=== PATIENT | female | born 1975 | race Caucasian/White ===

== ENCOUNTER 2019-12-04 15:32 | Outpatient (CLI) | payer OTHER, SELFPAY ==
--- NOTE | ~2019-12-04 | MM_ITS ---
EXAMINATION: MM screening smita BI w carly HISTORY: Screening mammogram TECHNIQUE: Craniocaudal and mediolateral oblique 3-D tomosynthesis images were obtained and synthetic 2-D images were generated. CAD analysis was submitted and interpreted. COMPARISON: 12/28/2017 BREAST PARENCHYMAL COMPOSITION: There are scattered areas of fibroglandular density. FINDINGS: There is developing asymmetry laterally in the right breast CC view. The left breast is sta ble without evidence for malignancy. IMPRESSION: 1. Developing right breast asymmetry laterally on CC view. 2. Additional mammographic views and possible breast ultrasound are recommended. BI-RADS Category 0: Incomplete: Needs additional imaging evaluation. Reviewed, dictated and finalized at location A. IMPRESSION: 1. Developing right breast asymmetry laterally on CC view. 2. Additional mammographic views and possible breast ultrasound are recommended . BI-RADS Category 0: Incomplete: Needs additional imaging evaluation.
== END 2019-12-04 15:33 | disposition home or self-care (01) ==
LOC: ANHIMG 15:36
PROVIDERS: PCP Family Medicine; Visit Provider Advanced Practice Midwife
DX: Z12.31 Encounter for screening mammogram for malignant neoplasm of breast (principal); R92.8 Other abnormal and inconclusive findings on diagnostic imaging of breast
CPT/HCPCS: 77063; 77067

== ENCOUNTER 2019-12-28 11:56 | Outpatient (CLI) | payer OTHER, SELFPAY ==
--- NOTE | ~2019-12-28 | MMUS_ITS ---
EXAMINATION: MM diagnostic mammo unilat RT, US breast RT limited HISTORY: Follow-up right breast masses TECHNIQUE: Additional 3-D tomosynthesis images of the right breast were performed and synthetic 2-D i mages were generated. CAD analysis was submitted and interpreted. High resolution right breast ultras ound was performed. COMPARISON: Comparison to multiple prior studies sequentially, with oldest reviewed study dated 12/28. BREAST PARENCHYMAL COMPOSITION: Breast composed of scattered areas of fibroglandular density. FINDINGS: MAMMOGRAPHIC FINDINGS: There are benign-appearing masses in the upper aspect of the right breast. There are no abnormal calc ifications or architectural distortion in the right breast to suggest malignancy. ULTRASOUND: Right breast ultrasound: There are multiple simple and complicated cysts of the right breast at 12:00 , 7 cm from the nipple, likely corresponding to the mammographic findings. IMPRESSION: 1. Multiple benign-appearing cysts of the right breast at 12:00, 7 cm from the nipple likely correspo nding to the mammographic findings. 2. Recommend 6 month follow-up diagnostic right mammogram with possible ultrasound. BI-RADS category 3, probably benign findings. Reviewed, dictated and finalized at location A. IMPRESSION: 1. Multiple benign-appearing cysts of the right breast at 12:00, 7 cm from the nipple likely corresponding to the mammographic findings. 2. Recommend 6 month follow-up diagnostic right mammogram with possible ultraso und. BI-RADS category 3, probably benign findings.
== END 2019-12-28 11:57 | disposition home or self-care (01) ==
PROVIDERS: PCP Family Medicine; Visit Provider Advanced Practice Midwife
DX: R92.8 Other abnormal and inconclusive findings on diagnostic imaging of breast (principal)
CPT/HCPCS: 76642; 77065

== ENCOUNTER 2021-05-26 14:25 | Emergency (ER) | payer OTHER, SELFPAY ==
--- NOTE | ~2021-05-26 | XR_ITS ---
EXAMINATION: XR chest 2V DATE: 05/26/2021 14:49 INDICATION: Cough. TECHNIQUE: Frontal and lateral views of the chest were obtained. COMPARISON: CT abdomen and pelvis 04/09/2010 FINDINGS: The chest demonstrates clear lungs without pneumonia, pleural effusion, or pneumothorax. Th e heart size is normal. IMPRESSION: 1. No acute cardiopulmonary disease. Reviewed, dictated and finalized at location B. 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
[2021-05-26 14:32] VITALS: BP 143/84; PULSE 85; RESP 14; TEMP 36.7; O2SAT 99
--- NOTE | 2021-05-26 14:36 | ED.URI ---
HPI - URI/Sore Throat General Chief Complaint: Upper Respiratory Infection Stated Complaint: Chest Congestion/Shortness of Breath Time Seen by Provider: 05/26/21 14:36 Source: patient and RN notes reviewed History of Present Illness HPI Narrative: Patient is a 46-year-old female presents the urgent care with complaints of cough and chest congestion. Patient states that she was seen in another facility on Wednesday and given prednisone for her cough and states that it is not helping . Patient tested negative at that time for flu, strep and COVID. When patient was tested for COVID at the facility she had only been symptomatic for 2 days. Denies any recent exposure to COVID. Patient has not been vaccinated. Denies of any known fevers, nausea or vomiting. Patient does have 2 more days left of the steroid. Patient was not given an inhaler or antibiotics. States that she is having difficulty exhaling. Otherwise denies of shortness of breath or chest pain. No other acute complaints. No acute distress noted. Patient read the plan of care. Some parts of this dictation were generated by voice recognition software and may contain typographical and/or grammatical inaccuracies. Related Data Home Medications Medication Instructions Recorded Confirmed prednisone 20 mg PO DAILY 05/26/21 05/26/21 sertraline 50 mg PO DAILY 05/26/21 05/26/21 Allergies Allergy/AdvReac Type Severity Reaction Status Date / Time hydroxyzine Allergy Mild HIVES Unverified 05/26/21 14:36 Review of Systems Review of Systems: CONSTITUTIONAL: Denies fever. Reports of chills and sweats EYES: Denies visual changes, redness, or discharge. ENT: Denies rhinorrhea, congestion, sore throat, or otalgia. CARDIOVASCULAR: Denies chest pain, palpitations, or edema. RESPIRATORY: Reports a persistent cough and difficulty exhaling GASTROINTESTINAL: Denies abdominal pain, nausea, vomiting, or diarrhea. GENITOURINARY: Denies dysuria or hematuria. SKIN: Denies rash or itching. MUSCULOSKELETAL: Denies back pain, joint pain, or myalgia. NEUROLOGIC: Denies headache, numbness, or weakness. All other systems reviewed are negative, except as documented in HPI. PMFSH Comments At the time of my signature, I reviewed and agree with the nursing past medical, surgical, social, and family history. There is no relevant family history pertinent to the patient complaint. Exam Narrative: GENERAL: This is a well-nourished, well-developed patient. He is anxious HEAD: normocephalic, atraumatic. EYES: PERRL. Sclera clear/white. Vision is grossly intact. EARS: External ears normal, auditory canals clear and without drainage, TMs normal without perforation. Hearing grossly intact. NOSE: External nose normal with no obvious nasal discharge, nares without redness, no rhinorrhea. THROAT: Mucous membranes moist, posterior pharynx clear. Moderate postnasal drainage NECK: Neck supple CARDIOVASCULAR: Regular rate and rhythm without murmurs, gallops, or rubs. RESPIRATORY: Clear to auscultation. Diminished right lower SKIN: Slightly diaphoretic. warm, intact with no suspicious lesions or rash, good texture and turgor. NEURO: awake, alert, and oriented to person, place and time. There were no obvious focal neurologic abnormalities. EXTREMITIES: No clubbing, cyanosis, or edema. Course Course Level of Care: Express Care Visit Vital Signs Vital signs: Vital Signs Temperature 98.0 F 05/26/21 14:32 Pulse Rate 85 05/26/21 14:32 Respiratory Rate 14 05/26/21 14:32 Blood Pressure 143/84 H 05/26/21 14:32 Pulse Oximetry 99 05/26/21 14:32 Temperature 98.0 F 05/26/21 14:38 Pulse Rate 85 05/26/21 14:38 Respiratory Rate 14 05/26/21 14:38 Blood Pressure 143/84 H 05/26/21 14:38 Pulse Oximetry 99 05/26/21 14:38 Reviewed-patient is informed that they may have pre-hypertension or hypertension based on a blood pressure reading in the department. I recommend the patient call the prima
[2021-05-26 14:38] VITALS: BP 143/84; PULSE 85; RESP 14; TEMP 36.7; O2SAT 99
== END 2021-05-26 15:17 | disposition home or self-care (01) ==
PROVIDERS: Emergency Provider Nurse Practitioner Family; PCP Family Medicine
DX: J40 Bronchitis, not specified as acute or chronic (principal)
CPT/HCPCS: 71046; 99213; G0463

== ENCOUNTER 2024-06-29 09:19 | Emergency (ER) | payer OTHER, SELFPAY ==
--- OUTSIDE RECORDS SUMMARY | 2024-06-29 09:38 | XMS_ITS | Referral Summary ---
Author Organization [facility] Address 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 This disclosure is being madepursuant to the Care Everywhere program and may not contain all information available regarding this patient. Last updated 18.[facility] Encounters Date Type Department Care Team Description 06/17/2024 Orders Only [facility] [address] [place] [address] Demi Sharma APRN-CNP 06/17/2024 9:20 AM SKEIN WINDER Video Visit [facility] [address] [place] [phone] Demi Sharma APRN-CNP Bronchitis from Last 3 Months Allergies Active Allergy Reactions Criticality Noted Date Comments Hydroxyzine Urticaria Medium 01/14/2017 Medications * Be aware that medications may not be up to date on this document. Alwaysverify current medications with the patient. Medication Sig Dispensed Refills Start Date End Date Status Vitamins-Lipotropi cs (MULTIPLE VITAMIN) capsule Active ferrous gluconate 324 (37.5 Fe) MG Take 324 mg by mouth 01/14/2017 Active FLUoxetine (PROZAC) 20 MG capsule Take 20 mg by mouth 2 times daily 0 01/19/2019 Active benzonatate (TESSALON) 200 MG capsule Take 1 capsule by mouth 3 times daily as needed for Cough 30 capsule 02/09/2019 Active albuterol HFA (PROVENTIL;VENTOLI N;PROAIR) 108 (90 Base) MCG/ACT inhaler Inhale 2 puffs by mouth every 6 hours as needed for Shortness of Breath, Wheezing or Cough 1 Inhaler 02/09/2019 Active sertraline (Zoloft) 50 MG tablet Take 1 (one) tablet by mouth once daily 05/24/2023 Active benzonatate (Tessalon) 200 MG capsule Take 1 (one) capsule by mouth 3 times daily as needed for Cough 30 capsule 06/17/2024 Active predniSONE (Deltasone) 10 MG tablet Take 5 (five) tablets by mouth once daily for 2 days, THEN 4 (four) tablets once daily for 2 days, THEN 3 (three) tablets once daily for 1 day, THEN 2 (two) tablets once daily for 1 day, THEN 1 (one) tablet once daily for 1 day. With food int he morning. 24 tablet 06/17/2024 06/24/2024 Active Problems No known active problems Social History Tobacco Use Types Packs/Day Years Used Date Smoking Tobacco: Never Assessed PHQ-2 Answer Date Recorded Patient Health Questionnaire-2 Score 1 06/17/2024 Sex and Gender Information Value Date Recorded Sex Assigned at Not on file Gender Identity Not on file Sexual Orientation Not on file Last Filed Vital Signs Vital Sign Reading Time Taken Comments Blood Pressure 132/84 02/09/2019 4:48 PM CDT Pulse 86 02/09/2019 4:48 PM CDT Temperature 37 C (98.6 F) 02/09/2019 4:48 PM CDT Respiratory Rate 18 02/09/2019 4:48 PM CDT Oxygen Saturation 96% 02/09/2019 4:48 PM CDT Inhaled Oxygen Concentration - - Weight 104.3 kg (230 lb) 02/09/2019 4:48 PM CDT Height 162.6 cm (5' 4 ) 02/09/2019 4:48 PM CDT Body Mass Index 39.48 02/09/2019 4:48 PM CDT Plan of Treatment Not on file
--- OUTSIDE RECORDS SUMMARY | 2024-06-29 09:38 | XMS_ITS | Patient Health Summary ---
Author Organization [facility] Address [address] 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,non-owned Affiliates and Associated Physician Practices is amultiple site organization consisting of ambulatory clinics and hospital sitesin [place], [place], [place] and [place]. This disclosure is being madepursuant to the Care Everywhere program and may not contain all information available regarding this patient. Last updated 18.[facility] Allergies * Hydroxyzine(Urticaria) -Medium Criticality Medications * Be aware that medications may not be up to date on this document. Alwaysverify current medications with the patient. * Vitamins-Lipotropics (MULTIPLE VITAMIN) capsule * ferrous gluconate 324 (37.5 Fe) MG(Started 01/14/2017) Take 324 mg by mouth * FLUoxetine (PROZAC) 20 MG capsule(Started 01/19/2019) Take 20 mg by mouth 2 times daily * benzonatate (TESSALON) 200 MG capsule(Started 02/09/2019) Take 1 capsule by mouth 3 times daily as needed for Cough * albuterol HFA (PROVENTIL;VENTOLIN;PROAIR) 108 (90 Base) MCG/ACT inhaler (Started 02/09/2019) Inhale 2 puffs by mouth every 6 hours as needed for Shortness of Breath, Wheezing or Cough * sertraline (Zoloft) 50 MG tablet(Started 05/24/2023) Take 1 (one) tablet by mouth once daily * benzonatate (Tessalon) 200 MG capsule(Started 06/17/2024) Take 1 (one) capsule by mouth 3 times daily as needed for Cough Ended Medications* predniSONE (Deltasone) 10 MG tablet(Started 06/17/2024) () Take 5 (five) tablets by mouth once daily for 2 days, THEN 4 (four) tablets once daily for 2 days, THEN 3 (three) tablets once daily for 1 day, THEN 2 (two) tablets once daily for 1 day, THEN 1 (one)tablet once daily for 1 day. With food int he morning. Active Problems No known active problems Social [...]
--- OUTSIDE RECORDS SUMMARY | 2024-06-29 09:38 | XMS_ITS | Clinical Summary ---
Author Organization [facility] Address [address] [place] [address] Phone Care Team Providers Care Document Review Specialist Name Role Phone Sanjay Rivera MD Primary Care Provider [phone] Allergies Active Allergy Reactions Criticality Noted Date Comments Hydroxyzine Hives 01/14/2017 Measles Virus Vaccine Live Attenuated Hives Medium 05/23/2019 Reaction: hives, Wheat Other (see Comments) Low 02/25/2018 Medications Cholecalciferol (VITAMIN D3) 1000 UNIT Tablet Take 1 Tab by mouth Every other day. Active albuterol 108 (90 Base) MCG/ACT Aerosol Solution take 2 Puffs by inhalation every 4 hours as needed. 9 Active omeprazole (PriLOSEC) 20 MG CAPSULE DELAYED RELEASEIndicati ons:Pharyngoeso phageal dysphagia Take 1 Capsule by mouth 2 times daily. 180 Capsule 1 1 Active Additional Information Patient taking differently:20 mg OralPRN, Reported on 04/18/2021 sertraline (ZOLOFT) 50 MG Tablet Take 50 mg by mouth daily. Active Probiotic Product (PROBIOTIC DAILY PO) Take by mouth. Activ e [place]-3 Fatty Acids (FISH OIL PO) Take by mouth daily. 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 01/12/2018 Chronic diarrhea 01/12/2018 Restless leg syndrome 01/12/2018 Celiac disease Resolved Problems Problem Noted Date Diagnosed Date Resolved Date Celiac disease 02/14/2018 09/16/2019 Family History Medical History Relation Name Comments Crohn's Disease Brother Cancer Maternal Grandfather Heart Disease Maternal Grandfather Cancer Maternal Grandmother Hypertension Mother Stroke Mother Cancer Paternal Grandfather Diabetes Paternal Grandfather Heart Disease Paternal Grandfather Cancer Paternal Grandmother Relation Name Status Comments Brother Alive Father Alive Maternal Grandfather Maternal Grandmother Mother Alive Paternal Grandfather Paternal Grandmother Social History Tobacco Use Types Packs/Day Years Used Date Smoking Tobacco: Never Smokeless Tobacco: Never Tobacco Cessation:Counseling Given: Not Answered Alcohol Use Standard Drinks/Week Comments Not Currently 0 (1 standard drink = 0.6 oz pur e alcohol) rarely Sexually Active Control Partners Comments Yes None Male Comments No Sex and Gender Information Value Date Recorded Sex Assigned at Not on file Legal Sex Female 11:52 PM CDT Gender Identity Not on file Sexual Orientation Not on file 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 Not on file Not on file Last Filed Vital Signs Vital Sign Reading Time Taken Comments Blood Pressure 148/100 05/12/2022 3:33 PM SEE SUPERVISOR Pulse 94 05/12/2022 3:33 PM SEE SUPERVISOR Temperature 36.5 C (97.7 F) 05/12/2022 3:33 PM SEE SUPERVISOR Respiratory Rate 18 05/12/2022 3:33 PM SEE SUPERVISOR Oxygen Saturation 97% 05/12/2022 3:33 PM SEE SUPERVISOR Inhaled Oxygen Concentration - - Weight 114.4 kg (252 lb 1.6 oz) 05/12/2022 3:33 PM SEE SUPERVISOR Height 167.6 cm (5' 6 ) 05/12/2022 3:33 PM SEE SUPERVISOR Body Mass Index 40.69 05/12/2022 3:33 PM SEE SUPERVISOR Plan of Treatment Health Maintenance Due Date Last Done Comments Hepatitis C Virus (HCV) Screening 1975 TdaP Immunization 1975 Hepatitis B Immunization (1 of 3 - 19+ 3-dose series) 02/15/1995 Pap Smear 02/15/1997 Cervical Cancer Screening (CCS) 02/15/2006 HPV/Cotest 02/15/2006 Discussion re Starting/Frequency of Mammograms 2016 Influenza Immunization (#1) 2024 SARS-COV-2 Immunization ( season) 2024 Colonoscopy High Risk 10/29/2025 10/29/2020 , 02/14/2018 Colorectal Cancer Screening 10/29/2025 Immunochemical Fecal Occult Blood 02/15/2026 12/23/2017 Colonoscopy 10/29/2030 10/29/2020, 02/14/2018 Respiratory Syncytial Virus (RSV) Immunization (Adult) (1 - 1-dose 75+ series) 02/15/2051 Meningococcal Immunization (ACWY) Aged Out No longer eligible b ased on patient's age to complete this topic Pneumococcal Immunization Combined Aged Out No longer eligible b ased on patient's age to complete this topic Rotavirus Immunization Aged Out No lo nger eligible based on patient's age to complete this topic Procedures Procedure Name Priority Date/Time Associated Diagnosis Comments STOOL, OCCULT BLOOD IMMUNOAS SAY (IFOB) Routine 12/23/2017 from Last 3 Months or Most Recently Relevant to Health Maintenance Results * STOOL, OCCULT BLOOD IMMUNOASSAY (IFOB) (12/23/2017) Specimen of unknown material (specimen) STOOL SPECIMEN / Unknown Eyad Mohan MD BODY FLUIDS & STOOLS ORDERA BLES Final Result from Last 3 Months or Most Recently Relevant to Health Maintenance Insurance [employer] Care Teams Document Review Specialist Relationship Specialty Start Date End Date Sanjay Rivera MD [address] [place] [address] PCP - General Internal Medicine 04/21/19
--- OUTSIDE RECORDS SUMMARY | 2024-06-29 09:38 | XMS_ITS | Clinical Summary ---
Author Organization [facility] Address [address] 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 This disclosure is being madepursuant to the Care Everywhere program and may not contain all information available regarding this patient. 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 Video Visit [facility] [address] [address] Demi Sharma APRN-CNP Bronchitis 06/17/2024 Orders Only [facility] [address] [place] [address] Demi Sharma APRN-CNP from Last 3 Months Social History Tobacco Use Types Packs/Day Years [...] 02/09/2019 4:48 PM CDT Plan of Treatment Health Maintenance Due Date Last Done Comments COLOGUARD (AGES 45-75) - COLON CA SCREENING [address] COLONOGRAPHY - COLON CA SCREENING 1975 FIT - COLON CA SCREENING 1975 FLEX SIG - COLON CA SCREENING 1975 LIPID TESTING 1975 HIV SCREENING 02/15/1991 HEPATITIS C SCREENING 02/11/1994 DTAP/TDAP/TD VACCINES (1 - Tdap) 02/15/1995 HEPATITIS B VACCINE (1 of 3 - 19+ 3-dose series) 02/15/1995 COVID-19 VACCINE (1 - 2023- season) 2024 INFLUENZA VACCINE (#1) 2024 ZOSTER VACCINE (1 of 2) 02/15/2026 PAP SMEAR 03/03/2026 03/03/2023 MAMMOGRAM 03/10/2026 03/10/2024, 02/15, 11/27/2022, Additional history exists COLONOSCOPY - COLON CA SCREENING 02/04/2032 02/03/2022 Colorectal Cancer Screening 02/04/2032 DEPRESSION SCREENING Completed 06/17/2024 HIB VACCINE Aged Out No longer eligi ble based on patient's age to complete this topic HPV VACCINE Aged Out No longer eligi ble based on patient's age to complete this topic MENINGOCOCCAL (Group B) VACCINE Aged Out No longer eligible based on patient's age to complete this topic MENINGOCOCCAL VACCINE Aged Out No liu zulay eligible based on patient's age to complete this topic PNEUMOCOCCAL VACCINE Aged Out No long er eligible based on patient's age to complete this topic Chelita Peoples Personal/Family Self 1975 [address] [id number] Chelita Peoples Personal/Family Self 1975 ([place] [address] [id number]
--- OUTSIDE RECORDS SUMMARY | 2024-06-29 09:38 | XMS_ITS | Data Portability ---
Author Organization [facility] Address [address] [place] [address] Care Team Providers Care Supervisor Money Room Name Role Phone REINIER GAY Primary Care Provider Assessment Encounter Date Assessment Date Assessment LastModified by Organization Details LastModified Time 03/03/2023 03/03/2023 Annual gynecological exam performed. Patient will come back in a year unless there are new symptoms. [email or web address] Not available 03/03/2023 11:01:47 04/05/2024 04/05/2024 Annual gynecological exam performed. Patient will come back in a year unless there are new symptoms. [email or web address] Not available 04/05/2024 17:04:18 Plan of Treatment Reminders Order Date Submit Date Provider Last Modified By Organization Details Last Modified Time Details Appointments None record ed. Lab None record ed. Referral None record ed. Procedures None record ed. Surgeries None record ed. Imaging None record ed. Medication Orders None record ed. Patient TargetsNo targets recorded. Patient InstructionsNo instructions recorded. Reason for Referral None Reported. 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 FINAL DIAGN OSIS: Negat maliha for Intra epith elial Lesio n or Amrita ron (NIL) . Infla mmato ry cell boateng es (incl udes typic al repai r). Elect warner cocuh chacho d by Nitin Peña MD on 2021 at 2:28 PM ----- ----- ----- ----- ----- ----- ----- ----- ----- ----- ----- ----- ----- ----- ----- ----- ----- ---- HPV RESUL TS: HPV mRNA E6/E7 : No HPV mRNA Detec kathy NOTE: This high risk HPV mRNA assay detec ts fourt een high- risk HPV types (16, 18, 31, 33, 35, 39, 45, 51, 52, 56, 58, 59, 66, 68) witho ut diffe renti ation . COMME NT: Note: This speci men was revie wed by a Cytot echno logis t and/o r Patho logis t (as indic ated in this repor t) after evalu ation using the Thinp rep Imagi ng Syste m. CLINI VAN INFOR MATIO N: Menst rual Statu s: LMP (if appli cable ): Clini van Histo ry/Pr eviou s Pap: Type of Neopl abigail (if appli cable ): Signi fican t Clini van Findi ngs: Other Histo ry: Hormo candace (if appli cable ): PAP EDUCA ALLIE L NOTE: The Pap Test is a scree ender test with an inher ent false negat maliha rate. Liqui d-bas ed sampl ing may decre ase, but will not elimi jorge, false negat maliha resul ts. A negat maliha resul t does not precl ude the prese nce and/o r devel opmen t of disea se, since the prese nce of abnor mal cells in the sampl e depen ds on the locat ion of the lesio n and sampl ing techn ique. Renuka nued regul ar scree ender is the best metho d of cance r preve ntion . If repor kathy cytol ogic findi ng do not corre late with physi van and/o r histo rical findi ngs, furth er inves tigat ion is recom liz d, as clini federica salmon nted. Not Available [facility] (Lab) [address], [place], [address], 09/29/2021 15:31:07 08/12/19 23 08/11/2022 SURGI VAN PATHO LOGY surgical pathology SEE RESULT S BELOW CASE REPOR T: Surgi van Patho logy Repor t Case: [id number] Autho denise swartz Provi cira: Cora Beatty, CNRodney Colle cted: 08/11 1710 Order ing Locat ion: [place] Path[place] Recei tobi: 08/12 0541 Patho logis t: Jany Owen MD Speci men: Vagin a, Cyst of vagin a FINAL DIAGN OSIS: Vagin al cyst, excis ion: -Hidr adeno ma papil lifer um. Elect warner couch chacho d by Jany Owen MD on 2022 at 4:44 PM ----- ----- ----- ----- ----- ----- ----- ----- ----- ----- ----- ----- ----- ----- ----- ----- ----- ---- CLINI VAN INFOR MATIO N: n89.8 MICRO SCOPI C DESCR IPTIO N: A micro scopi c exami natio n was perfo rmed. GROSS DESCR IPTIO N: A. Vagin a. The speci men is recei tobi in forma dayan label ed with the patie nt's name, aston levine, and vagi nal cyst . It consi sts of a monge-p ink, firm soft tissu e fragm ent measu ring 1.1 x 0.8 x 0.5 cm. The speci men is secti oned and submi tted entir adela in casse tte A1. 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 FINAL DIAGN OSIS: Negat maliha for Intra epith elial Lesio n or Amrita ron (NIL) . Elect warner couch chacho d by Verito Rosenberg , CT on 03/08 at 10:58 AM ----- ----- ----- ----- ----- ----- ----- ----- ----- ----- ----- ----- ----- ----- ----- ----- ----- ---- HPV RESUL TS: HPV mRNA E6/E7 : No HPV mRNA Detec kathy NOTE: This high risk HPV mRNA assay detec ts fourt een high- risk HPV types (16, 18, 31, 33, 35, 39, 45, 51, 52, 56, 58, 59, 66, 68) witho ut diffe renti ation . COMME NT: This speci men was revie wed by a Cytot echno logis t and/o r Patho logis t (as indic ated in this repor t) after evalu ation using the Thinp rep Imagi ng Syste m. CLINI VAN INFOR MATIO N: Menst rual Statu s: LMP (if appli cable ): Clini van Histo ry/Pr eviou s Pap: Type of Neopl abigail (if appli cable ): Signi fican t Clini van Findi ngs: Other Histo ry: Hormo candace (if appli cable ): PAP EDUCA ALLIE L NOTE: The Pap Test is a scree ender test with an inher ent false negat maliha rate. Liqui d-bas ed sampl ing may decre ase, but will not elimi jorge, false negat maliha resul ts. A negat maliha resul t does not precl ude the prese nce and/o r devel opmen t of disea se, since the prese nce of abnor mal cells in the sampl e depen ds on the locat ion of the lesio n and sampl ing techn ique. Renuka nued regul ar scree ender is the best metho d of cance r preve ntion . If repor kathy cytol ogic findi ng do not corre late with physi van and/o r histo rical findi ngs, furth er inves tigat ion is recom liz d, as clini federica salmon nted. Not Available [facility] (Lab) [address], [place], [address], 03/08/2023 12:02:05 Result Notes None recorded. Problems Name Problem SNOMED Code Status Onset Date Resolution Date Notes Provider Name and Address Organization Details Recorded Time Speciali zed medical examinat ion Completed 201306/16/2021 Routine gynecolo gical examinat ion;Prac daija ID: 0001 Mae aquino [facility] 2 14:24:53 Screenin g for malignan t neoplasm of cervix Completed 201306/16/2021 Pap Smear;Pr actice ID: 0001 Mae aquino [facility] 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 2 14:24:49 Emotiona l state finding Completed 201706/16/2021 Other specifie d anxiety disorder s;Practi ce ID: 0001 Mae aquino [facility] 2 14:24:30 Palpitat ions [id number] Completed 201706/16/2021 Palpitat ions;Pra ctice ID: 0001 Mae aquino [facility] 2 14:24:57 Screenin g for malignan t neoplasm of rectum Completed 201706/16/2021 Encounte r for screenin g for malignan t neoplasm of rectum;P ractice ID: 0001 Mae aquino [facility] 2 14:24:[address] Concept Completed 201806/16/2021 Encntr for general adult medical exam w/o abnormal findings ;Recorde d Elsewher e: No [facility] our[facility]: EHR Digital Assistant kendell: N Practi ce ID: 0001 Anthony lable Time: 05:30:00 PM Mae aquino [facility] 2 14:24:48 Right lower quadrant pain [id number] Completed 201406/16/2021 RLQ pain;Rec orded Elsewher e: No Locat ion: [facility] S ource: EHR Digital Assistant kendell: N David ce ID: 0001 Anthony lable Time: 04:00:00 PM Mae Rizo [facility] 2 14:24:46 Low risk human papillom avirus deoxyrib onucleic acid detected in specimen from cervix [id number] Completed 201609/22/2021 Marlyn Boudreaux [facility], [facility] 2 09:16:48 Adult health examinat ion Completed 201306/16/2021 ROUTINE MEDICAL EXAM;Rec orded Elsewher e: No Locat ion: [facility] S ource: EHR Digital Assistant kendell: N David ce ID: 0001 Anthony lable Time: 04:00:00 PM Mae Rizo [facility], [facility] 2 14:24:43 Abnormal weight gain 135716243 Completed 201806/16/2021 Abnormal weight gain;Rec orded Elsewher e: No Locat ion: [facility] S ource: EHR Digital Assistant kendell: Meg Hernandez ce ID: 0001 Anthony lable Time: 05:30:00 PM Mae Rizo [facility] 2 14:24:37 Female genital organ symptoms 264649227 Completed 201106/16/2021 Unspecif ied symptom associat ed with female genital organs;R ecorded Elsewher e: No Locat ion: [facility] S ource: EHR Digital Assistant kendell: N David ce ID: 0001 Anthony lable Time: 03:30:00 PM Mae Rizo [facility] 2 14:24:41 Obesity 117374955 Completed 201306/16/2021 Obesity; Recorded Elsewher e: No Locat ion: Bob dara [facility] S ource: EHR Digital Assistant kendell: N Practi ce ID: 0001 Anthony lable Time: 04:00:00 PM Mae aquino [facility] 2 14:24:51 Body mass index 30+ - obesity [id number] Completed 201406/16/2021 Body mass index (BMI) 36.0-36. 9, adult;Re corded Elsewher e: No Locat ion: [facility] S ource: EHR Digital Assistant kendell: N Practi ce ID: 0001 Anthony lable Time: 04:00:00 PM Mae aquino [facility] 2 14:24:38 Removal of intraute rine device Completed 201306/16/2021 REMOVAL OF IUD;Rick rded Elsewher e: No Locat ion: [facility] S ource: EHR Digital Assistant kendell: N Practi ce ID: 0001 Anthony lable Time: 04:15:00 PM Mae aquino [facility] 2 14:24:55 Problem Notes None recorded. Procedures Surgical History Date Name Laterality Status Provider Name and Address Organization Details Recorded Time 03/10/20 24 Date of Last Mammogram completed [facility] 04/05/2024 17:10:43 03/03/20 23 Date of Last Pap Smear completed [facility] 04/05/2024 17:01:51 08/12/19 23 I&D completed Cora Woods [facility] 08/14/2022 10:21:32 08/12/19 23 excision of cyst of vagina completed Leena Maloney [facility] 08/18/2022 16:29:00 02/06/20 22 completed Leena Maloney [facility] 08/18/2022 16:27:12 09/20/20 22 Date of Last Colonoscopy completed [facility] 08/18/2022 16:27:12 05/17/19 11 biopsy of ovary completed [facility] 06/16/2021 14:29:44 05/17/19 10 procedure on back completed [facility] 08/11/2022 10:50:30 05/17/19 04 surgical procedure on eye proper using laser completed [facility] 08/11/2022 10:51:42 05/17/19 02 section completed [facility] 06/16/2021 14:28:22 08/19/19 00 Caesarean Section completed [facility] 04/05/2024 17:03:25 05/17/18 98 removal of sebaceous cyst completed [facility] 06/16/2021 14:28:34 05/17/18 91 extraction of wisdom tooth completed [facility] 06/16/2021 14:29:31 05/17/18 90 Tonsillectomy completed [facility] 04/05/2024 17:12:25 Imaging Results None recorded. Procedure Notes None recorded. Medical Equipment None Reported. Allergies Allergen ID Allergen Name Allergen Category Reaction Reaction Severity Criticality Documentation Date Start Date Code Code System Note Provider Name and Address Organization Details Recorded Time 85125 hydroxyzi ne Not available Not available Not available Not available 06/16/2021 5553 RxNorm Mae Darrius [facility] 14:24:14 99053 measles and rubella live virus vaccine Not available Not available Not available Not available 06/16/2021 27993 UNK Mae Darrius [facility] 2 14:30:22 92950 Measles Vaccine Not available Not available Not available Not available 06/16/2021 6669 RxNorm Mae Darrius aquino [place] - [facility] 2 14:30:31 Medications Name Sig Start Date Stop Date Status Note LastModified by Organization Details LastModified Time Singulair 10 mg tablet take 1 tablet by oral route every day in the evening 08/26 completed Prescrib ed Elsewher e: Yes Loca tion: [facility] odify By: [email or web address] z Encoun ter DateTime : 04/02/20 14 04:00:00 PM Not Available Not Available Not Available prednison e 10 mg tablet TAKE 4 TABLETS BY MOUTH ONCE DAILY FOR DAYS 1-3, 3 DAILY FOR DAYS 4-6, 2 DAILY FOR DAYS 7-9, THEN 1 DAILY FOR DAYS 10-12 09/22 completed Not Available Not Available Not Available Vitamin B-12 100 mcg tablet 06/16 completed Prescrib ed Elsewher e: Yes Loca tion: [facility] odify By: amkuhl E ncountkelin DateTime : 12/01/19 18 02:45:00 PM Not Available Not Available Not Available prednison e 20 mg tablet TAKE 2 TABLETS BY MOUTH ONCE DAILY FOR 5 DAYS 09/22 completed Not Available Not Available Not Available phentermi ne 37.5 mg tablet 08/11 completed Not Available Not Available Not Available triamcino lone acetonide 0.1 % topical cream APPLY TOPICALL Y TO THE AFFECTED AREA TWICE DAILY active Not Available Not Available No t Available Prozac 20 mg capsule TAKE 1 CAPSULE BY MOUTH TWICE DAILY 02/06 completed Prescrib ed Elsewher e: No Locat ion: [facility] odify By: [email or web address] Encounte r DateTime : 01/20/20 19 01:00:41 PM Not Available Not Available Not Available methylpre dnisolone 4 mg tablets in a dose pack FOLLOW PACKAGE DIRECTIO NS 04/05 completed Not Available Not Available Not Available albuterol sulfate HFA 90 mcg/actua tion aerosol inhaler INHALE 2 PUFFS BY MOUTH EVERY 6 HOURS NEEDED FOR WHEEZING active Not Available Not Available No t Available clomipram ine 25 mg capsule take 2 capsule by oral route every day at bedtime 08/26 completed Prescrib ed Elsewher e: Yes Loca tion: Cassi [facility] odify By: jacob z Encoun ter DateTime : 04/02/20 14 04:00:00 PM Not Available Not Available Not Available multivita min capsule take 1 capsule by oral route every day 05/06 completed Prescrib ed Elsewher e: Yes Loca tion: Cassi diamond [facility] odify By: noam Diamond ncounter DateTime : 12/30/19 12 01:47:45 PM Not Available Not Available Not Available sertralin e 50 mg tablet TAKE 1 TABLET BY MOUTH EVERY DAY active Not Available Not Available No t Available amoxicill in 875 mg-potass ium clavulana te 125 mg tablet TAKE 1 TABLET BY MOUTH EVERY 12 HOURS FOR 7 DAYS 08/11 completed Not Available Not Available Not Available Flovent HFA 110 mcg/actua tion aerosol inhaler INHALE 2 PUFFS BY MOUTH TWICE DAILY. RINSE MOUTH WATER AFTER USE. DO NOT SWALLOW active Not Available Not Available No t Available testoster one active Pellets [id number] ant based Not Available Not Available Not Available CoQ-10 and Fish Oil active Not Available Not Available Not Available Advair HFA 115 mcg-21 mcg/actua tion aerosol inhaler INHALE 2 PUFFS BY MOUTH TWICE DAILY. RINSE MOUTH WITH WATER AFTER USE. DO NOT SWALLOW active Not Available Not Available No t Available Fish Oil 300 mg-500 mg capsule 06/16 completed Prescrib ed Elsewher e: Yes Loca tion: Cassi diamond [facility] odify By: ambarbara Diamond ncounter DateTime : 12/01/19 18 02:45:00 PM Not Available Not Available Not Available cholecalc iferol (vitamin D3) 1,250 mcg (50,000 unit) capsule TAKE 1 CAPSULE BY MOUTH ONCE A WEEK active Not Available Not Available No t Available Zyrtec 10 mg capsule 08/26 completed Prescrib ed Elsewher e: Yes Loca tion: Cassi diamond [facility] odify By: jacob z Encoun ter DateTime : 04/02/20 14 04:00:00 PM Not Available Not Available Not Available Multi Vitamin 9 mg iron/15 mL oral liquid 06/16 completed Prescrib lissette Marie e: Yes Loca tion: Cassi diamond [facility] M juanito By: noam douglasunter DateTime : 12/01/19 18 02:45:00 PM Not Available Not Available Not Available Clenpiq 10 mg-3.5 gram-12 gram/160 mL oral solution TAKE 1 KIT BY MOUTH DIRECTED 08/11 completed Not Available Not Available Not Available Vitals Date Recorded Body height Body mass index (BMI) Body weight Provider Name and Address Organization Details Last Updated DateTime 09/22/2021 167.64 cm 41 kg/m2 022849.74 g Marlyn Boudreaux [facility] 09/22/2021 12:48:19 Date Recorded Systolic blood pressure Diastolic blood pressure Provider Name and Address Organization Details Last Updated DateTime 09/22/2021 122 mm[Hg] 82 mm[Hg] Rosalia Livingston, [facility]- [address], [place], [address], [facility] 09/22/2021 12:56:08 Date Recorded Body height Body mass index (BMI) Body weight Systolic blood pressure Diastolic blood pressure Provider Name and Address Organization Details Last Updated DateTime 08/11/2022 167.64 cm 38.4 kg/m2 340206.9 8 g 130 mm[Hg] 83 mm[Hg] Leena Maloney [facility] 3 10:46:41 Date Recorded Body height Body mass index (BMI) Body weight Systolic blood pressure Diastolic blood pressure Provider Name and Address Organization Details Last Updated DateTime 08/18/2022 167.64 cm 38.6 kg/m2 742664.5 8 g 128 mm[Hg] 77 mm[Hg] Leena Maloney [facility] 3 16:26:29 Date Recorded Body height Body mass index (BMI) Body weight Provider Name and Address Organization Details Last Updated DateTime 03/03/2023 167.64 cm 41.5 kg/m2 950210.24 g Gudelia Moran [facility] 03/03/2023 11:04:00 Date Recorded Systolic blood pressure Diastolic blood pressure Provider Name and Address Organization Details Last Updated DateTime 03/03/2023 147 mm[Hg] 90 mm[Hg] Rosalia Livingston, [facility]- [address], [place], [address], [facility] 03/03/2023 11:19:05 Date Recorded Body height Body mass index (BMI) Body weight Systolic blood pressure Diastolic blood pressure Provider Name and Address Organization Details Last Updated DateTime 04/05/2024 167.64 cm 39.7 kg/m2 861255.7 2 g 136 mm[Hg] 71 mm[Hg] Elaine Roche [facility] 17:08:54 Social History Question Answer Notes LastModified by Organizat ion Details LastModified Time Tobacco Smoking Status Never Smoker Maliamattie Garridogorge aquino, [facility] 03/03/2023 10:51:43 Do You Have An Advance Directive? Yes [email or web address] Information not available 08/11/2022 What Is Your Level Of Alcohol Consumption? Occasional [email or web address] Information not available 08/11/2022 How Many Years Have You Consumed Alcohol? 15 [email or web address] Information not available 08/11/2022 Are You Blind Or Do You Have Difficulty Seeing? No [email or web address] Information not available 08/11/2022 What Is Your Level Of Caffeine Consumption? Occasional [email or web address] Information not available 08/11/2022 How Much Tobacco Do You Chew? None [email or web address] Information not available 08/11/2022 In The 14 Days Before Symptom Onset, Have You Had Close Contact With A Laboratory-confir med COVID-19 While That Case Was Ill? No [email or web address] Information not available 08/11/2022 In The 14 Days Before Symptom Onset, Have You Had Close Contact With A Person Who Is Under Investigation For COVID-19 While That Person Was Ill? No Information not available 08/11/2022 Have You Been To An Area Known To Be High Risk For COVID-19? No [email or web address] Information not available 08/11/2022 Are You Deaf Or Do You Have Serious Difficulty Hearing? No [email or web address] Information not available 08/11/2022 What Type Of Diet Are You Following? GLUTENFREE [email or web address] Information not available 08/11/2022 What Is The Highest Grade Or Level Of School You Have Completed Or The Highest Degree You Have Received? 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 Yes [email or web address] Information not available 08/11/2022 Do You Use Protection During Sex? No [email or web address] Information not available 08/11/2022 Do You Use Your Seat Belt Or Car Seat Routinely? Yes [email or web address] Information not available 08/11/2022 Do You Have Smoke And Carbon Monoxide Detectors In Your Home? Yes [email or web address] Information not available 08/11/2022 How Much Tobacco Do You Smoke? No [email or web address] Information not available 08/11/2022 Do You Feel Stressed (tense, Restless, Nervous, Or Anxious, Or Unable To Sleep At Night)? [id number] Information not available 08/11/2022 Do You Use Any Illicit Or Recreational Drugs? No [email or web address] Information not available 08/11/2022 Do You Use Sunscreen Routinely? Yes [email or web address] Information not available 08/11/2022 Have You Used IV Drugs? No [email or web address] Information not available 08/11/2022 Sex: Unknown Functional Status Question Answer Note LastModified by Organizat ion Details LastModified Time Do you have difficulty walking or climbing stairs? No [email or web address] Information not available 03/03/2023 Are you able to walk? YESWOREST Information not available 08/11/2022 Are you able to care for yourself? Yes [email or web address] Information not available 03/03/2023 Do you have difficulty dressing or bathing? No [email or web address] Information not available 03/03/2023 What is your exercise level? Occasional [email or web address] Information not available 04/05/2024 Mental Status None recorded. Family History Relationship Description Onset Age of this Age Resolved Age Notes LastModified by Organization Details LastModified Time Maternal Grandfather Malignant neoplasm of bone [email or web address] Not available 2023 17:03:24 Maternal Grandfather Malignant tumor of kidney [email or web address] Not available 2023 17:03:24 Maternal Grandfather Carcinoma of prostate 60 [email or web address] Not available 2023 17:03:24 Maternal Aunt Malignant tumor of breast 60 [email or web address] Not available 2023 17:03:24 Maternal Grandmother Malignant tumor of cervix 50 [email or web address] Not available 2023 17:03:24 Paternal Aunt Malignant neoplasm of skin [email or web address] Not available 2023 17:03:24 Paternal Grandmother Malignant neoplasm of uterus 50 Not available 2023 17:03:24 Medical History Condition Response Allergies (Food, seasonal, environmental ) Y Other Y Drug/Latex Allergies/Reactions Y Blood Transfusion N Breast Cancer N Dermatologic Disorders N Lung Disease N Defects or Inherited Disease N Breast Problem N Gestational Diabetes N Hematologic disorders N Anesthesia Complications N History of STI N Deep Vein Thrombosis N Polycystic ovary syndrome N Anxiety Disorder Y Autoimmune disease N Arthritis N Polyps N Infertility N Acid Reflux (GERD) N History of abnormal pap Y Cancer Y Varicosities N Stroke N Neurologic/Epilepsy Y Endometriosis N High Cholesterol N Fibromyalgia N Headaches N Kidney Disease N Heart Problems N Thyroid Problems N Kidney or Bladder Problems N GI Problems Y Eating Disorder N Anemia N Art (IVF or FET) N Psychiatric Illness N Ovarian Cancer N Diabetes N Pulmonary (TB, Asthma) N Hepatitis/Liver Disease N No Past Medical History N Eczema N Urinary Tract Infection N Abuse/Domestic Violence N Asthma Y Trauma/Violence N Depression/ depression Y Heart Disease N Pre-Eclampsia N Hypertension N Osteoporosis N Thrombophilias N Gynecological History Statement/Question Response Abnormal Pap Y Flow Light Date of Last Mammogram 03/10/2024 Date of LMP 03/05/2024 N On BCP's at Conception? N STIs/STDs N Was last menstrual period normal N HPV Vaccine N Duration of Flow (days) 6 Current Control Method Partner Vas ectomy Age at First Child 24 Are cycles usually normal Y Date of Last Colonoscopy 02/03/2022 Frequency of Cycle (Q days) 30 Sexually Active? Y Menses Monthly Y Age of first menstrual cycle 13 Date of Last Pap Smear 03/03/2023 Sexual Problems? N LMP Definite 02/05/2022 Y Obstetrics History GPAL:G 2 P 2 0 0 2 Type Value Full Term 2 Living 2 Total 2 Past Encounters Encounter ID Performer Location Encounter Start Date Encounter Closed Date Diagnosis/Indication Diagnosis SNOMED-CT Code Diagnosis ICD10 Code Diagnosis [id number] [address] [address] 06/17/2021 10:29:18 06/23/2021 16:18:12 Gynecologic examination [id number] Z01.419 Z11.51 Suggested Calcium with Vitamin D 1200-1500m g daily. Patient advised to get an annual flu shot in the fall and she could obtain at [facility] or [facility] clinic. Also to obtain TDap vaccinatio n if you have not had one in the last 10 years. Recommend yearly mammograms . Encouraged monthly self breast exams. Encourage safe sexual practices, to use condoms and limit partners if not already in a monogamous relationsh ip. Engage in daily exercise of low impact aerobic exercise 45-60 minutes 4-5 times weekly. Avoid tobacco and illicit drugs as well as using moderation with alcohol intake less than 1-2 8 oz beverages daily. This lifestyle behavior pattern will lead to less health conditions and longer life span. If BMI greater than 25 weight watchers or dietary consult advised. All questions have been answered. Patient appears to understand informatio n, but if you have any questions please call or respond to this email. [id number] Rosalia Livingston [facility] [address] [address] 09/22/2021 12:36:51 09/22/2021 13:11:52 Specimen with abnormal presence of endometrial cells [id number] R87.619 Likely pap done too close to menses but it was decided that a repeat pap/hpv testing will be completed today.Spec mounika sentwill update when results return. Time spent in visit is a total of 15 mins with at least 50% of visit consisting of counseling and review of plan of care. [id number] Cora Woods [facility] [address] [address] 08/11/2022 10:29:38 08/14/2022 10:26:51 Cyst of vulva [id number] N90.7 After discussion with MD and patient we decided to proceed with excision. Pt agreed and verbalized understand ing of procedure and risks. Excision of cyst. See procedure note. Care instructio ns given. Return in 1-2 weeks or sooner if any problems. [id number] Cora Woods [facility] [address] [address] 08/18/2022 16:00:16 08/19/2022 14:31:32 Cyst of vulva [id number] N90.7 Hidradenom a papillifer um discussed with patient. Site is healed. Suture removed. Rare chance of malignancy in the future but she will let us know right away if any change in site. [id number] Rosalia Livingston [facility] [address],[place] [address] 03/03/2023 10:51:19 03/03/2023 11:22:39 Gynecologic examination [id number] Z01.419 Z11.51 Suggested Calcium with Vitamin D 1200-1500m g daily. Patient advised to get an annual flu shot in the fall and she could obtain at [facility] or [facility] care clinic. Also to obtain TDap vaccinatio n if you have not had one in the last 10 years. Recommend yearly mammograms . Encouraged monthly self breast exams. Encourage safe sexual practices, to use condoms and limit partners if not already in a monogamous relationsh ip. Engage in daily exercise of low impact aerobic exercise 45-60 minutes 4-5 times weekly. Avoid tobacco and illicit drugs as well as using moderation with alcohol intake less than 1-2 8 oz beverages daily. This lifestyle behavior pattern will lead to less health conditions and longer life span. If BMI greater than 25 weight watchers or dietary consult advised. All questions have been answered. Patient appears to understand informatio n, but if you have any questions please call or respond to this email. Pap/hpv sent (opts to send)STD Screen declinedGe netic Screen discussedC olon Screen naDexa ScreennaRo utine Labs UTD PCP/Specia listHRT Testostero ne pellets q3mos Elevated blood-pressure reading without diagnosis of hypertension [id number] R03.0 No sx'sRecomm ended monitoring and updating visit with PCP. [id number] HENOK SANDY NP [facility] [address] [address] 04/05/2024 17:01:55 04/05/2024 17:27:42 Gynecologic examination [id number] Z01.419 Annual gynecologi van exam performed. Patient will come back in a year unless there are new symptoms. Suggest Calcium with Vitamin D if not eating in diet. Patient advised to get annual flu shot. Recommend yearly physicals and perform monthly breast exams. Genetic testing is available for patients with family history of cancer. Engage in safe sexual practices, use condoms. Encouraged to have daily exercise. Avoid tobacco and illicit drugs, moderation of alcohol. If BMI greater than 25 dietary consult advised. If you have any questions please call or email. Pt getting genetic testing through PCP in July d/t FH of breast cancer (maternal aunt) and uterine cancer (paternal GM) mammogram- UTD PCP colon cancer screening - UTD PCP DEXA scan- n/a Pap smear- UTD (2022 - ), will repeat per ASCCP guidelines laboratory evaluation - PCP STI testing - declined Patient getting HRT Testostero ne pellets q3mos Health Concerns Section Related Observation LastModified by Organization Detai ls LastModified Time None Recorded Concern Status LastModified by Organization Details LastModified Time None Recorded Advance Directives Directive Y: Payers Encounter Date Sequence Insurance Name Policy Number Policy Barrios Covered Member ID Barrios Member ID Guarantor Name 09/22/2021 1 [facility] [id number] Archie Peoples [id number] Ricardo [facility] 08/11/2022 1 [employer] [id number] Archie Peoples [id number] Ricardo Jamisontasheridan 08/18/2022 1 [employer] [id number] Archie Peoples [id number] Ricardo Sontag 03/03/2023 1 [employer] [id number] Archie Peoples [id number] Ricardo Sonta 04/05/2024 1 [facility] [id number] Archie Peoples [id number] Ricardo Zeldag Notes Date Note Type Note Provider Name and Address Organization Details Recorded Time 09/22/2021 text/html Here today for repeat pap/HPV smear testing due to endometrial cells found on pap in 06/2021. [facility] [address], [place], [address], [facility] 09/22/2021 12:59:48 08/11/2022 text/html Vulvar cyst. Has been present for a long time but recently increased in size. Not painful. Cora aquino [facility] 08/14/2022 10:22:15 08/18/2022 text/html Here to follow u p on excison biopsy. No pain or bleeding. Cora aquino [facility] 08/18/2022 17:57:05 03/03/2023 text/html Annual GYNReport ed bypatient.History: no gynecologic complaints Menstrual cycle:Normal menses Urinary symptoms:No hematuria; No incontinence Vulva:No genital lesion Vagina:Normal vaginal discharge Breast:No breast pain; No breast lump; No nipple discharge Current Contraception:Sati sfied with current contraception; Partner had vasectomy Sexual complaints:No sexual complaints; No pain during intercourse; Normal libido Menopausal Symptoms:No menopausal symptoms; Normal vaginal lubrication Psychological symptoms:No depression; No anxiety; No PMDD Preventive measures:Encourage self breast examination; Encourage regular exercise; Encourage no tobacco use; Encourage regular mammograms starting age 40; Followed with yearly pap smears; Mammogram performed within the past year; Up to date on colonoscopy screening Rosalia Livingston [facility] [address], [place], [address], [place] [facility] 03/03/2023 11:21:30 04/05/2024 text/html Annual GYNReport ed bypatient.History: no gynecologic complaints Menstrual cycle:Normal menses Urinary symptoms:No hematuria; No incontinence Vulva:No genital lesion Vagina:Normal vaginal discharge Breast:No breast pain; No breast lump; No nipple discharge Current Contraception:Part ner had vasectomy Sexual complaints:No sexual complaints; No pain during intercourse; Normal libido Menopausal Symptoms:No menopausal symptoms; Normal vaginal lubrication Psychological symptoms:No depression; No anxiety; No PMDD Preventive measures:Encourage self breast examination; Encourage regular exercise; Encourage no tobacco use; Encourage regular mammograms starting age 40; Mammogram performed within the past year; Up to date on colonoscopy screening Patient presents for annual well woman exam. Patient denies concerns today. HENOK SANDY NP [address], [place], [address], [facility] 04/05/2024 17:26:14 OBGyn Episode Ob Episode Information Episode Created Date Number of Fetuses Patient Bloodtype Patient rh Status Prepregnancy Weight lbs Domestic Partner Domestic Partner Phone Father Name Home Decorator Status 06/16/19 1 CLOSED Fetus Data First Name Last Name Admitted to NICU Weight (g) Sex Living Outcome Pediatric Complications Fetus ID Race Codes Race Delivery Type 3713.55 7704 F Full Term [id number] Repeat Samir Calculation Initial Samir Date Initial Exam Date Initial Exam Provider Initial Ultrasound Date Last Menstrual Period Date Ultra Sound Weeks Gestation 0 Eighteen To Twenty Week Samir Update Ultra Sound Date Fundal Height At Umbil Quickening Date Ultra Sound Latest Weeks Gestation Final Samir Confirmed By Final Samir Confirmed Date Final Samir Date Ultra Sound Latest Days Gestation 0 0 Menstrual History Last Menstrual Date Menses Monthly On Bcp Conception Prior Menses Frequency Hcg Plus Date Menarche Onset Age Delivery Information Delivery Date Delivery Type Labor Anesthesia Weeks Gestation Incision Type Labor Labor Length Hrs Delivered By Post Complications Tubal Sterilization Discharge Date Comments 2 38 Discharge Information Feeding Method Contraceptive Method Maternal HG B and HCT Levels Ob Episode Information Episode Created Date Number of Fetuses Patient Bloodtype Patient rh Status Prepregnancy Weight lbs Domestic Partner Domestic Partner Phone Father Name Home Decorator Status 06/16/19 22 1 CLOSED Fetus Data First Name Last Name Admitted to NICU Weight (g) Sex Living Outcome Pediatric Complications Fetus ID Race Codes Race Delivery Type 3628.73 6 M Full Term [id number] Primary Samir Calculation Initial Samir Date Initial Exam Date Initial Exam Provider Initial Ultrasound Date Last Menstrual Period Date Ultra Sound Weeks Gestation 0 Eighteen To Twenty Week Samri Update Ultra Sound Date Fundal Height At Umbil Quickening Date Ultra Sound Latest Weeks Gestation Final Samir Confirmed By Final Samir Confirmed Date Final Samir Date Ultra Sound Latest Days Gestation 0 0 Menstrual History Last Menstrual Date Menses Monthly On Bcp Conception Prior Menses Frequency Hcg Plus Date Menarche Onset Age Delivery Information Delivery Date Delivery Type Labor Anesthesia Weeks Gestation Incision Type Labor Labor Length Hrs Delivered By Post Complications Tubal Sterilization Discharge Date Comments 0 38 Discharge Information Feeding Method Contraceptive Method Maternal HG B and HCT Levels
--- OUTSIDE RECORDS SUMMARY | 2024-06-29 09:39 | XMS_ITS | Clinical Summary ---
Author Organization [facility] Address [address] [place] [address] Care Team Providers Care Product Sales Representative Name Role Phone Sanjay Rivera MD Primary Care Provider [phone] AbileneLiliam MD Unavailable [phone] Allergies Active Allergy Reactions Criticality Noted Date Comments Gluten Other (See comments) Low 01/08/2021 Hydroxyzine Hives Medium 01/14/2017 Measles Vaccine,Live,Attenuated Hives Medium 05/23/2019 Reaction: hives, Wheat Other (See comments) Low 02/25/2018 Medications calcium carbonate-vitami n D3 1,000 mg(2,500 mg)-800 unit tablet Take by mouth daily 1000 international units daily Active acidophilus-pect in, citrus 100 million cell-10 mg capsule Take by mouth OTC Probiotic Active biotin 1,000 mcg tablet,chewable 01/16/20 23 Active cholecalciferol (VITAMIN D-3) 50,000 unit capsule Take 1 capsule (50,000 Units total) by mouth once a week 03/29/20 23 Active omega 8-lcp-xtd-fish oil (Fish OiL) 1,000 mg (120 mg-180 mg) capsule 01/16/20 23 Active sertraline (ZOLOFT) 50 mg tabletIndication s:Anxiety and depression Take 1 tablet (50 mg total) by mouth daily 90 tablet 3 05/24/19 24 Active albuterol HFA (PROVENTIL HFA,VENTOLIN HFA,PROAIR HFA) 90 mcg/actuation inhalerIndicatio ns:Mild intermittent asthma without complication Inhale 2 puffs every 6 (six) hours as needed for wheezing 1 each 3 05/24/19 24 Active fluticasone propion-salmeter oL (Advair HFA) 115-21 mcg/actuation inhalerIndicatio ns:Mild intermittent asthma without complication Inhale 2 puffs 2 (two) times a day Rinse mouth with water after use. Do not swallow. 1 each 3 05/24/19 24 Active triamcinolone (KENALOG) 0.1 % cream Apply topically 2 (two) times a day 30 g 07/09/19 24 Active zinc sulfate (Zinc-15) 66 mg tablet 01/16/20 23 Active Active Problems Problem Noted Date Diagnosed Date Palpitations 04/26/2024 Assessment & Plan (04/26/2024 2:36 PM MANAGER STUDENT SERVICES): Chronic intermittent palpitations. Increasing recently. 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 ECG unremarkable. Also complete labs today. We reviewed red flags. She is in agreement with plan states understanding. Acute pain of left knee 05/24/2023 Assessment & Plan (05/24/2023 4:57 PM MANAGER STUDENT SERVICES): Fall onto left knee/leg 6 days ago. Mild abrasion noted to left knee with [id number] swelling of left knee. Bruising noted to left velazquez. Patient is taking acetaminophen for pain. Pain is worse with walking however she is been able to ambulate without difficulty. Recommended ibuprofen/NSAIDs. Reviewed rest, ice, Kolby wrap and elevating extremity. Left ankle swelling 05/24/2023 Assessment & Plan (05/24/2023 4:57 PM MANAGER STUDENT SERVICES): Swelling and bruising noted to left ankle. Patient is not experiencing any pain. Will check imaging, discussed rice. Left leg pain 05/24/2023 Assessment & Plan (05/24/2023 4:58 PM MANAGER STUDENT SERVICES): No redness or warmth noted to left leg. Given patient is experiencing significant anterior velazquez pain will check imaging of LLE. Bronchitis 01/21/2022 Drug-induced constipation 01/21/2022 Assessment & Plan (01/21/2022 9:40 AM CDT): New onset. May be related to treatment with phentermine. Counseled to augment water consumption. Colonoscopy recommended. Class 3 severe obesity due t o excess calories with serious comorbidity and body mass index (BMI) of 40.0 to 44.9 in adult 06/30/2021 Assessment & Plan (01/21/2022 9:43 AM CDT): She was referred for endoscopic bariatric procedure but it was not covered by her insurance company. Therefore she is trying medications at this time. Assessment & Plan (12/29/2021 5:03 PM CDT): Reviewed medication, adverse effects, and importance of monitoring blood pressure/heart rate routinely. Discussed policy of monthly weigh-ins, expected weight loss of at least 5% over 12 weeks, and follow-up in 3 months. Reviewed EKG on file, patient denies any chest pain or palpitations. Will start first with half tablet and monitor for medication side effects, increase to full tablet once daily after 1 week. She is aware to discontinue phentermine if she experiences GI upset, shortness of breath, palpitations or chest pain. Assessment & Plan (07/16/2021 9:39 AM MANAGER STUDENT SERVICES): The patient desires a minimally invasive procedure for treatment of obesity. She specifically inquired about g astric balloon . I informed her that I will reach out to the [facility] Endoscopy Service to see if it is offered. Assessment & Plan (06/30/2021 5:34 PM MANAGER STUDENT SERVICES): Discussed healthy diet and importance of regular physical activity. Mild intermittent asthma without complication Assessment & Plan (05/24/2023 4:54 PM MANAGER STUDENT SERVICES): Has been on Flovent for several months and is doing well, wanted to use albuterol inhaler for the 1st time this week. She is out both inhalers. Denies any cough or shortness a breath. Assessment & Plan (12/29/2021 4:59 PM CDT): Improved with use of Flovent twice daily. Denies any need for albuterol inhaler. Assessment & Plan (06/30/2021 5:34 PM MANAGER STUDENT SERVICES): Discussed use of maintenance inhaler and rescue inhaler. No abnormal findings on PE. Elevated liver enzymes 01/08/2021 Assessment & Plan (07/16/2021 9:32 AM MANAGER STUDENT SERVICES): Previous repeat liver function tests were normal. She gain weight recently presumably due to steroid therapy. I will repeat liver function tests. Assessment & Plan (01/08/2021 12:52 PM CDT): The patient had AST 44, ALT 139 and alkaline phosphatase 114 (12/02/2020). Likely due to gall bladder disease vs medication induced. Plan Obtain US RUQ. Repeat liver function tests. Encounter for screening mammogram for breast can cer 12/27/2020 Assessment & Plan (02/10/2024 5:21 PM CDT): Mammogram ordered today Assessment & Plan (12/27/2020 4:54 PM CDT): [facility], given order today. Continues sbe. Benign-appearing intramammary lymph node of R breast on 03/11/20 US. Due for annual mammogram November 2020. PEGGY (obstructive sleep apnea) 10/22/2020 Assessment & Plan (04/26/2024 2:36 PM MANAGER STUDENT SERVICES): Untreated. Intolerant of CPAP. Discussed options including trial of dental appliance versus referral to sleep specialist. She will check with her dentist regarding appliance. Keep follow-up as scheduled and if not tolerating will refer to sleep specialist. She is in agreement with plan states understanding. Class 2 obesity due to exces s calories without serious comorbidity with body mass index (BMI) of 39.0 to 39.9 in adult 08/27/2020 Assessment & Plan (02/10/2024 5:05 PM CDT): Taking semaglutide, ordered online, since September of this year. Semaglutide 2.4 mg weekly, tolerating without difficulty. Lost 20l bs. Denies any medication side effects. Has been out of wegovy for the past 2 week. Assessment & Plan (12/27/2020 4:54 PM CDT): Reviewed recommendations for daily intake & activity 20-30 minutes/day. Discussed healthy diet and importance of regular physical activity. Assessment & Plan (08/27/2020 10:21 PM CDT): Reviewed need to lose weight, reviewed health benefits. Reviewed recommendations for daily intake & activity 20-30 minutes/day. Discussed healthy diet and importance of regular physical activity. Encounter for screening for lipid disorder 08/27 Assessment & Plan (02/10/2024 5:21 PM CDT): Fasting labs ordered today Assessment & Plan (05/24/2023 4:54 PM MANAGER STUDENT SERVICES): Patient states she had labs completed with wellness provider about 2 months ago, will have labs sent to office. Assessment & Plan (12/29/2021 5:01 PM CDT): Results for orders placed or performed in visit on 12/29/21 POCT lipid panel Result Value Ref Range Cholesterol, POC 167 mg/dL HDL, POC 48 mg/dL Triglycerides, POC 218 mg/dL LDL, Direct, POC 76 mg/dL Chol/HDL Ratio, POC 3.5 Non-HDL Cholesterol, POC 119 mg/dL Cholesterol Total, POC 167 mg/dL Reviewed with patient, discussed elevated triglyceride level and need for dietary changes. Assessment & Plan (06/30/2021 5:34 PM MANAGER STUDENT SERVICES): Will check fasting labs. Reviewed diet/exercise recommendations. Assessment & Plan (08/27/2020 10:22 PM CDT): Lipid panel ordered; will call w/results when received. Reviewed diet/exercise recommendations. Moderate episode of recurrent major depressive d isorder 07/15/2020 Assessment & Plan (08/27/2020 10:23 PM CDT): Doing well on current sertraline 50mg daily. Reports good control of depression w/current regimen. No changes to be made at this time. Reviewed med Ses & scheduling. Reviewed red flags. To make f/u appt in 3 mos. Assessment & Plan (07/17/2020 11:32 AM MANAGER STUDENT SERVICES): Discussed different types of medications & their Ses/MOA. Sertraline 50 mg daily sent. To take 1/2 tab for 1st 8 days then increase to full tab. To make f/u appt in 5-6 weeks. Aware that it may take up to 4 weeks to notice effects & 6-8 weeks to feel full effects. Reviewed main Ses of GI upset & AGUIRRE Reviewed red flags; aware to call office/911 if thoughts of harming self/others. To stop medications immediately in that instance. MULLEN (dyspnea on exertion) 07/15/2020 Assessment & Plan (07/17/2020 11:30 AM MANAGER STUDENT SERVICES): EKG normal; compared to 11/2018 EKG. No changes. BNP, CXR ordered. Reviewed recent labs from Dr Botello's office. Discussed h/o asthma. If neg CXR/labs, will send in flovent 2 puff bid. Reviewed inhaler technique. Will contact w/results once rec'd. Aware to check her [employer] account. Reviewed red flags; what would warrant rtc/ED for more emergent eval. Anxiety and depression 05/23/2019 Assessment & Plan (02/10/2024 5:20 PM CDT): Moods are stable doing well with sertraline, no changes made today Assessment & Plan (05/24/2023 4:53 PM MANAGER STUDENT SERVICES): Reports moods are stable with sertraline 50 mg daily Assessment & Plan (12/29/2021 5:02 PM CDT): Well controlled with sertraline. Will continue to monitor. Assessment & Plan (06/30/2021 5:35 PM MANAGER STUDENT SERVICES): Stable; continue sertraline without change. Follow up in 6 months or sooner if needed. Lives with supportive family. Denies SI/HI. Assessment & Plan (12/27/2020 4:42 PM CDT): Reports good control of anxiety and depression w/current regimen. No changes to be made at this time. Sertraline 50mg refill sent. Reviewed med Ses & scheduling. Reviewed red flags. Assessment & Plan (08/27/2020 10:20 PM CDT): Sertraline 50mg daily. Reports great improvement in anxiety/depressoin. To make f/u appt in 3 mos. Reports good control of depression/anxiety w/current regimen. No changes to be made at this time. Reviewed med Ses & scheduling. Reviewed red flags. Assessment & Plan (05/23/2019 3:08 PM MANAGER STUDENT SERVICES): Reports good control of anxiety/depression w/current regimen. No changes to be made at this time. Fluoxetine 20mg refill sent. Reviewed med Ses & scheduling. Reviewed red flags. Refused influenza vaccine 05/23/2019 Assessment & Plan (07/17/2020 11:33 AM MANAGER STUDENT SERVICES): Discussed and the patient refuses immunization today. Educated regarding the need to vaccinate for personal protection and to limit the viruses in the community to protect those most vulnerable. Assessment & Plan (05/23/2019 3:09 PM MANAGER STUDENT SERVICES): Discussed and the patient refuses immunization today. Educated regarding the need to vaccinate for personal protection and to limit the viruses in the community to protect those most vulnerable. Celiac disease 02/14/2018 Assessment & Plan (04/26/2024 2:37 PM MANAGER STUDENT SERVICES): Continues with gluten free diet. Will continue to monitor. Assessment & Plan (02/10/2024 5:20 PM CDT): Doing well on gluten free diet. EGD completed 2021 showing regrowth of villi. Will check labs today including CBC, iron profile, vitamin-D and B12. Assessment & Plan (05/24/2023 4:53 PM MANAGER STUDENT SERVICES): Asymptomatic at this time, continues to do well following a gluten free diet. Assessment & Plan (01/21/2022 9:38 AM CDT): Currently asymptomatic. Has become constipated lately because she is started on phentermine. Will check tTG IgA, iron profile. Repeat EGD with small-bowel biopsy. Assessment & Plan (07/16/2021 9:35 AM MANAGER STUDENT SERVICES): Doing well. Has been able to avoid gluten especially from cross contamination at restaurants. Encouraged to continue gluten free diet. Obtain repeat tTG IgA for follow-up. Assessment & Plan (01/08/2021 12:31 PM CDT): Biopsy-proven celiac disease. Has being on gluten free diet for several years. Recent endoscopy with duodenal biopsies revealed improved histology. Copper and zinc levels are reasonable. She also had a colonoscopy in 2020 that was normal. She was advised to continue gluten free diet. Assessment & Plan (05/23/2019 3:08 PM MANAGER STUDENT SERVICES): Follows w/Dr Juan A HARMON at [facility] for celiac. SHARI 04/2019. Doing well at this time w/current diet regimen. 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 Currently not on iron supplements. Has celiac disease. Will check iron profile. Assessment & Plan (01/08/2021 12:30 PM CDT): Chronic. She is now receiving iron infusions less frequent since being on gluten free diet. She follows up with Hematology Service. Advised to continue gluten free diet. Restless leg syndrome 01/12/2018 Chronic diarrhea 01/12/2018 Resolved Problems Problem Noted Date Diagnosed Date Resolved Date Class 3 severe obesity due t o excess calories without serious comorbidity with body mass index (BMI) of 40.0 to 44.9 in adult 07/15/2020 Assessment & Plan (07/17/2020 11:00 AM MANAGER STUDENT SERVICES): Reviewed need to lose weight, reviewed health benefits. Reviewed recommendations for daily intake & activity 20-30 minutes/day. Discussed healthy diet and importance of regular physical activity. Encounter for medical examin ation to establish care 05/23/2019 07/17/2020 Assessment & Plan (05/23/2019 3:09 PM MANAGER STUDENT SERVICES): Reviewed screening guidelines: no family history of breast or colon cancer. Encouraged monthly SBEs. Mammogram 2017 Colonoscopy 02/2018. Not due until [address] y/o [address] Velazco Reviewed dietary/activity recommendations. Encounter for screening for lipoid disorders 0 07/17/2020 Assessment & Plan (05/23/2019 3:09 PM MANAGER STUDENT SERVICES): Lipid panel ordered; will call w/results when received. Reviewed diet/exercise recommendations. BMI 39.0-39.9,adult 05/23/2019 07/18/19 21 Assessment & Plan (05/23/2019 3:10 PM MANAGER STUDENT SERVICES): Reviewed need to lose weight, reviewed health benefits. Reviewed recommendations for daily intake & activity 20-30 minutes/day. Discussed healthy diet and importance of regular physical activity. Encounters Date Type Department Care Team Description 06/22/2024 Telephone [facility] [address] [phone] Sanjay Rivera MD Test Results 06/21/2024 Telephone [place] [facility] [address] [place] [id number] Rose Quiajno MA 06/21/2024 Telephone [facility] [address] [phone] Sanjay Rivera MD Medical Question/Miscellaneo us 06/20/2024 Orders Only [facility] [address] [phone] Perri Lay NP Palpitations (Primary Dx); Murmur, cardiac 06/16/2024 9:25 AM MANAGER STUDENT SERVICES - 06/16/2024 11:59 PM MANAGER STUDENT SERVICES Hospital Encounter [facility] Cardiology [address] [place] [phone] Palpitations; Murmur, cardiac Discharge Disposition: Discharge to home or self care 06/16/2024 9:24 AM MANAGER STUDENT SERVICES - 06/16/2024 11:59 PM MANAGER STUDENT SERVICES Hospital Encounter [facility] Cardiology [address] [place] [phone] Palpitations; Murmur, cardiac Discharge Disposition: Discharge to home or self care 06/07/2024 11:50 AM MANAGER STUDENT SERVICES - 06/07/2024 11:59 PM MANAGER STUDENT SERVICES Hospital Encounter [facility] Cardiology [address] [place] [phone] Palpitations Discharge Disposition: Discharge to home or self care 05/23/2024 Orders Only [facility] [place] [phone] Perri Lay NP Palpitations (Primary Dx); Murmur, cardiac 05/11/2024 Telephone [facility] [address] [phone] Abby Romero, RONALDO Authorization/Certif ication (STRESS ECHO EXERCISE W DOPPLER/CF) 04/26/2024 2:00 PM MANAGER STUDENT SERVICES Office Visit [facility] [address] [phone] Perri Lay NP Palpitations (Primary Dx); Celiac disease; PEGGY (obstructive sleep apnea); Class 3 severe obesity due to excess calories with serious comorbidity and body mass index (BMI) of 40.0 to 44.9 in adult (HCC) 04/25/2024 Telephone [facility] [address] [phone] Sanjay Rivera MD Medical Question/Miscellaneo us 04/24/2024 2:30 PM MANAGER STUDENT SERVICES Office Visit [facility] [address] [place] [address] [address] [place] [id number] Daniela Mcdonald, JULIANE Viral URI with cough (Primary Dx); Cervicalgia; Murmur, cardiac; Class 3 severe obesity due to excess calories with serious comorbidity and body mass index (BMI) of 40.0 to 44.9 in adult (HCC) 04/03/2024 Telephone [facility] and Radiology [id number] [place] [phone] Sharon Diaz, vault keeper Only; Appointment 03/30/2024 Telephone [facility] Radiology [id number] [place] [phone] Sharon Diaz, vault keeper Only (High Risk /Genetic testing referral ) from Last 3 Months Immunizations Name Administration Dates Next Due Influenza, Unspecified 02/10/2024(Deferr ed: Patient Refused),05/24/2023(Deferred: Patient Refused),02/14/2023(Deferred: Patient Refused),01/15/2023(Deferred: Patient Refused),02/14/2022(Deferred: Patient Refused),01/15/2022(Deferred: Patient Refused),06/30/2021(Deferred: Patient Refused),02/14/2021(Deferred: Patient Refused),12/27/2020(Deferred: Patient Refused),07/15/2020(Deferred: Patient Refused),02/15/2020(Deferred: Patient Refused),05/23/2019(Deferred: Patient Refused),05/17/2019(Deferred: Patient Refused),02/14/2019(Deferred: Patient Refused),02/14/2019(Deferred: Patient Refused),05/17/2018(Deferred: Patient Refused) Pneumococcal Polysaccharide PPV23 12/29/2021(Def erred: Patient Refused) Surgical History Surgery Date Site/Laterality Comments TONSILLECTOMY 05/17/1991 - 05/16/1992 tonsillectomy LASIK LASIK OTHER SURGICAL HISTORY 05/17/2006 - 05/16/2007 cocajxejectomy SECTION 05/17/1999 - 05/16/2000 SECTION 05/17/2001 - 05/16/2002 CYST REMOVAL 05/17/1987 - 05/16/1988 N/A Arm WISDOM TOOTH EXTRACTION 05/17/1990 - 05/16/1991 OVARY BIOPSY 05/17/2010 - 05/16/2011 Right OTHER SURGICAL HISTORY 05/17/2007 - 05/16/2008 Complete Tailbone Removal COLONOSCOPY 05/17/2020 - 05/16/2021 COLONOSCOPY 05/17/2021 - 05/16/2022 constipation KNEE ARTHROSCOPY W/ LATERAL RELEASE Medical History Medical History Date Comments Celiac disease 02/2018 Abnormal ThinPrep Pap test of vagina 1995 Tilted uterus 1995 Anemia Anxiety 1998 Asthma Chronic bronchitis (HCC) Depression 1995 Autoimmune disease (CMS/HCC) (HCC) 02/25/2018 Menstrual problem 1989 Sleep apnea Family History Medical History Relation Name Comments Crohn's disease Brother Crohn's dise ase; Diabetes Father Anival Other Father Anival Alive and well; Bone cancer Maternal Grandfather FLAVIA Cancer Maternal Grandfather FLAVIA Heart attack Maternal Grandfather FLAVIA Kidney cancer Maternal Grandfather FLAVIA Prostate cancer Maternal Grandfather FLAVIA prostate Maternal Grandfather FLAVIA Cancer Maternal Grandmother Briana Cervical cancer Maternal Grandmother Briana Ovarian cancer Maternal Grandmother Briana Diabetes Mother Ninoska Heat Stroke Mother Ninoska Hypertension Mother Ninoska Skin cancer Mother Ninoska Breast cancer Mother's Sister 1 Cancer Mother's Sister 2 Monique Skin cancer Other 1 Family history of cancer, skin; Hypertension Other 2 Family history of Hypertension; Cancer Paternal Grandfather Maciej Cancer Paternal Grandmother Kim Heart attack Paternal Grandmother Kim Pancreatic cancer Paternal Grandmother Kim Uterine cancer Paternal Grandmother Kim Diabetes Sister Susy Relation Name Status Comments Brother Alive Pt's half broth er. Share Mother Father Anival Alive Maternal Grandfather FLAVIA Maternal Grandmother Briana Mother Ninoska Alive Mother's Sister 1 Mother's Sister 2 Monique Other 1 Other 2 Paternal Grandfather Maciej Paternal Grandmother Kim Sister Susy Alive Social History Tobacco Use Types Packs/Day Years Used Date Smoking Tobacco: Never Smokeless Tobacco: Never Tobacco Cessation:Counseling Given: Not Answered Alcohol Use Standard Drinks/Week Comments Not Currently 0 (1 standard drink = 0.6 oz pur e alcohol) Social Drinker AUDIT-C Answer Date Recorded Q1: How often do you have a drink containing alc ohol? Monthly or less 02/03/2022 Q2: How many drinks containi ng alcohol do you have on a typical day when you are drinking? 3 or 4 02/03/2022 Q3: How often do you have si x or more drinks on one occasion? Never 02/03/2022 PHQ-2 Answer Date Recorded PHQ-2 Total Score (If total score is 3 or more points, staff should administer the PHQ-9) 0 02/10/2024 Comments No Sex and Gender Information Value Date Recorded Sex Assigned at Not on file Legal Sex Female 5:07 PM MANAGER STUDENT SERVICES Gender Identity Female 03/04/2020 6:31 AM CDT Sexual Orientation Straight 03/04/2020 6: 31 AM CDT Obstetrics History Para Term AB IAB SAB Ectopic Multiple Livin g Live Births 2 2 2 Date Outcome GA Total Labor Labor/2nd/3rd Weight Sex Type Anes PTL Daisy A1 A5 Name Clin Term Term Last Filed Vital Signs Vital Sign Reading Time Taken Comments Blood Pressure 122/86 04/26/2024 1:41 PM MANAGER STUDENT SERVICES Pulse 93 04/26/2024 1:41 PM MANAGER STUDENT SERVICES Temperature 36.4 C (97.5 F) 04/26/2024 1:41 PM MANAGER STUDENT SERVICES Respiratory Rate 20 04/26/2024 1:41 PM MANAGER STUDENT SERVICES Oxygen Saturation 99% 04/26/2024 1:41 PM MANAGER STUDENT SERVICES Inhaled Oxygen Concentration - - Weight 113.5 kg (250 lb 3.2 oz) 04/26/2024 1:41 PM MANAGER STUDENT SERVICES Height 167.6 cm (5' 5.98 ) 04/26/2024 1:41 PM CS T Body Mass Index 40.4 04/26/2024 1:41 PM MANAGER STUDENT SERVICES Plan of Treatment Health Maintenance Due Date Last Done Comments Cervical Cancer Screening 1976 Pneumococcal vaccine <65 (1 of 2 - PCV) 02/15/1982 DTaP/Tdap/Td Vaccine (1 - Tdap) 02/15/1987 Hepatitis B Screening 02/15/1994 Regular Well Visit/Exam 18-64 02/15/1994 Depression Screening 02/09/2025 02/10/2024, 05/24/2023, 01/21/2022, Additional history exists Breast Cancer Screening-Mammogram 03/10/2025 03/10/2024, 11/27/2022, 05/31/2021, Additional history exists Colon Cancer Screening-Colonoscopy 02/04/2032 02/03/2022, 02/14/2018, 02/14/2018 Hepatitis C Screening Completed 01/08/2021 Influenza Vaccine Discontinued Procedures Procedure Name Priority Date/Time Associated Diagnosis Comments STRESS TEST ONLY TREADMILL Routine 06/16/2024 10:42 AM MANAGER STUDENT SERVICES Palpitations Murmur, cardiac TRANSTHORACIC ECHO (TTE) COMPLETE W DOPPLER/CF WO CONTRAST Routine 06/16/2024 10:06 AM MANAGER STUDENT SERVICES Palpitations Murmur, cardiac MCT - MOBILE CARDIAC TELEMETRY EVENT MONITOR Routine 06/07/2024 11:51 AM MANAGER STUDENT SERVICES Palpitations ECG 12-LEAD Routine 04/26/2024 2:10 PM MANAGER STUDENT SERVICES Palpitations POC INFLUENZA A/B, COVID-19 ANTIGEN Routine 04/24/2024 3:30 PM MANAGER STUDENT SERVICES Viral URI with cough SCREENING MAMMOGRAM BILATERAL W BEBETO Schedule Routine, Read Routine (OP Routine) 03/10/2024 12:59 PM CDT Encounter for screening mammogram for breast cancer COLONOSCOPY 02/03/2022 10:59 AM CDT HEPATITIS PANEL, ACUTE Routine 01/08/2021 12:17 PM CDT Elevated liver enzymes from Last 3 Months or Most Recently Relevant to Health Maintenance Results * Stress Treadmill Test (06/16/2024 10:42 AM MANAGER STUDENT SERVICES) LV EF % CONS SCIMAGE Anatomical Region Laterality Modality Nuclear Medicine 06/16/2024 10:1 4 AM MANAGER STUDENT SERVICES Narrative 06/16/2024 11:39 AM MANAGER STUDENT SERVICES [address] [address] EXERCISE STRESS Patient Name: LYNSEY JOYA : 1975 Study Date: 06/16/2024 10:14:00 AM Gender: F Tech: jkh Ref Provider: PERRI LAY Height(Cm): 168 BSA: 3.27 Weight(Kg): 230 Order Provider: PERRI LAY - PROCEDURES: Stress Report: Treadmill stress Exam. INDICATIONS: R00.2 Palpitations and R01.1 Cardiac murmur, unspecified. FINDINGS: Procedure Data: Exercise Time: 07:25 Resting HR 89 bpm Peak HR: 154 bpm Predicted Maximal HR 172 bpm Target HR: 146 bpm Percent Max Predicted HR Achieved: 90 % Baseline BP: 147/100 Peak BP: 183/87 METS achieved: 9 Rate-Pressure Product: 84829 BPM*mmHg Max ST: Performed By: Noemi White. Supervising Physician: The Supervising Physician is sylvia alejandra. Resting ECG: Normal sinus rhythm at 98 beats per minute, normal axis. Post ECG: No diagnostic ST changes. Arrhythmia: No arrhythmias seen. Exercise Capacity: Good exercise capacity. Cardiac Symptoms With Stress: Symptoms with stress were fatigue, general appearance and dyspnea. Target HR Achieved: Target heart rate was achieved. Reason For Termination: Fatigue. Dyspnea. THR achieved. Patient request. Hypertensive response. BP Response: Blood pressure response is appropriate. Exam Interpreted: Read by . CONCLUSIONS: 1. Adequate stress test in regards to heart rate with the patient achieving 89% of predicted maximum heart rate. 2. No exercise induced chest pain. 3. No definite ischemia on stress EKG. Electronically Signed By: Dr Sylvia Alejandra 06/16/2024 11:38:08 AM MANAGER STUDENT SERVICES Procedure Note Sylvia Alejandra MD - 06/16/[address] [place] [address] EXERCISE STRESS Patient Name: LYNSEY JOYA : 1975 Study Date: 06/16/2024 10:14:00 AM Gender: F Tech: jkh Ref Provider: PERRI LAY Height(Cm): 168 BSA: 3.27 Weight(Kg): 230 Order Provider: PERRI LAY - PROCEDURES: Stress Report: Treadmill stress Exam. INDICATIONS: R00.2 Palpitations and R01.1 Cardiac murmur, unspecified. FINDINGS: Procedure Data: Exercise Time: 07:25 Resting HR 89 bpm Peak HR: 154 bpm Predicted Maximal HR 172 bpm Target HR: 146 bpm Percent Max Predicted HR Achieved: 90 % Baseline BP: 147/100 Peak BP: 183/87 METS achieved: 9 Rate-Pressure Product: 53653 BPM*mmHg Max ST: Performed By: Noemi White. Supervising Physician: The Supervising Physician is sylvia alejandra. Resting ECG: Normal sinus rhythm at 98 beats per minute, normal axis. Post ECG: No diagnostic ST changes. Arrhythmia: No arrhythmias seen. Exercise Capacity: Good exercise capacity. Cardiac Symptoms With Stress: Symptoms with stress were fatigue, general appearance and dyspnea. Target HR Achieved: Target heart rate was achieved. Reason For Termination: Fatigue. Dyspnea. THR achieved. Patient request. Hypertensive response. BP Response: Blood pressure response is appropriate. Exam Interpreted: Read by . CONCLUSIONS: 1. Adequate stress test in regards to heart rate with the patientachieving 89% of predicted maximum heart rate. 2. No exercise induced chest pain. 3. No definite ischemia on stress EKG. Electronically Signed By: Dr Sylvia Alejandra 06/16/2024 11:38:08 AM MANAGER STUDENT SERVICES Perri Lay NP CV STRESS PROCEDURES Final Result * TRANSTHORACIC ECHO (TTE) COMPLETE W DOPPLER/CF WO CONTRAST (06/16/2024 10:06 AM MANAGER STUDENT SERVICES) LV EF 55 % CONS SCIMAGE Anatomical Region Laterality Modality Ultrasound 06/16/2024 9:47 AM MANAGER STUDENT SERVICES Narrative 06/16/2024 3:39 PM MANAGER STUDENT SERVICES [address] [address] Echocardiogram Report Patient Name: LYNSEY JOYA D : 1975 Study Date: 06/16/2024 9:47:47 AM Gender: F Tech: AA Location: echo room 2 Ref Provider: PERRI LAY Height(Cm): BSA: Weight(Kg): Quality: Good Order Provider: PERRI LAY PROCEDURES: Echocardiographic Report: Transthoracic echocardiogram with complete 2D, M-Mode, and color Doppler examination. INDICATIONS: Palpitations, R00.2 Palpitations, and R01.1 Cardiac murmur, unspecified. MEASUREMENTS: 2D/MM Value Range Doppler Value Range EF Teich 2D 62.9 % [ 54.0 - 74.0 ] GAEL Vmax 2.98 cm2 Estimated EF 55 to 60 % AV Mean PG 3 mmHg LVIDd 2D 4.68 cm [ 3.80 - 5.20 ] AV Peak Aldo 1.12 m/s [ 1.00 - 1.70 ] LVIDs 2D 3.09 cm [ 2.20 - 3.50 ] AV VTI 21.77 cm LVPWd 2D 1.22 cm [ 0.60 - 0.90 ] LVOT Diam 2.11 cm IVSd 2D 1.32 cm [ 0.60 - 0.90 ] LVOT Peak Aldo 0.96 m/s [ 0.70 - 1.10 ] LA Dimension MM 3.67 cm [ 2.70 - 3.80 ] LVOT VTI 19.43 cm AoR Diam MM 2.84 cm [ 2.70 - 3.70 ] MV E Peak Aldo 0.64 m/s [ 0.60 - 1.30 ] ACS MM 1.77 cm MV A Peak Aldo 0.73 m/s [ 1.00 - 1.20 ] MV Mean PG 2 mmHg MV PHT 66 msec [ 20 - 100 ] MVA 2.70 MV Decel Time 227 msec [ 104 - 258 ] PV Peak Aldo 0.95 m/s [ 0.40 - 0.80 ] TR Peak Aldo 2.58 m/s [ 1.00 - 2.80 ] TR Peak PG 27 mmHg RVSP 32.00 mmHg [ 10.00 - 36.00 ] E` 0.07 m/s E/E` 9.62 [ <= 10.00 ] PA Pressure 5.00 mmHg [ 10.00 - 36.00 ] 2D/MM Value Range Doppler Value Range - FINDINGS: Atrial Septum: Normal atrial septum. Left Ventricle: Irregular rhythm. Left ventricular systolic function at the lower limit of normal. Ejection Fraction is estimated to be 55 to 60 %. Left Atrium: The left atrium is normal in size. Right Ventricle: Normal right ventricular size. Normal right ventricular systolic function. Right Atrium: The right atrium is normal in size. Aortic Valve: Normal structure of the aortic valve. Mitral Valve: Normal structure of the mitral valve. Trivial regurgitation of the mitral valve. Pulmonic Valve: Pulmonic valve not well visualized. Trivial regurgitation in the pulmonic valve. Tricuspid Valve: Normal structure of the tricuspid valve. Mild tricuspid regurgitation. Pericardium: Normal pericardium with no significant pericardial effusion. Aorta: Normal aortic root. IVC: Normal size and normal respiratory collapse consistent with normal right atrial pressure (<5 mmHg). CONCLUSIONS: Irregular rhythm. Left ventricular systolic function at the lower limit of normal. Ejection Fraction is estimated to be 55 to 60 %. Normal structure of the mitral valve. Trivial regurgitation of the mitral valve. Normal structure of the aortic valve. Normal structure of the tricuspid valve. Mild tricuspid regurgitation. Electronically Signed By: Dr Sylvia Alejandra 06/16/2024 3:38:55 PM MANAGER STUDENT SERVICES Procedure Note Sylvia Alejandra MD - 06/16/[address] [place] [address] Echocardiogram Report Patient Name: LYNSEY JOYA D : 1975 Study Date: 06/16/2024 9:47:47 AM Gender: F Tech: AA Location: echo room 2 Ref Provider: PERRI LAY Height(Cm): BSA: Weight(Kg): Quality: Good Order Provider: PERRI LAY PROCEDURES: Echocardiographic Report: Transthoracic echocardiogram with complete 2D, M-Mode, and color Dopplerexamination. INDICATIONS: Palpitations, R00.2 Palpitations, and R01.1 Cardiac murmur, unspecified. MEASUREMENTS: 2D/MM Value Range Doppler ValueRange EF Teich 2D 62.9 % [ 54.0 - 74.0 ] GAEL Vmax 2.98cm2 Estimated EF 55 to 60 % AV Mean PG 3mmHg LVIDd 2D 4.68 cm [ 3.80 - 5.20 ] AV Peak Aldo 1.12m/s [ 1.00 - 1.70 ] LVIDs 2D 3.09 cm [ 2.20 - 3.50 ] AV VTI 21.77cm LVPWd 2D 1.22 cm [ 0.60 - 0.90 ] LVOT Diam 2.11cm IVSd 2D 1.32 cm [ 0.60 - 0.90 ] LVOT Peak Aldo 0.96m/s [ 0.70 - 1.10 ] LA Dimension MM 3.67 cm [ 2.70 - 3.80 ] LVOT VTI 19.43cm AoR Diam MM 2.84 cm [ 2.70 - 3.70 ] MV E Peak Aldo 0.64m/s [ 0.60 - 1.30 ] ACS MM 1.77 cm MV A Peak Aldo 0.73m/s [ 1.00 - 1.20 ] MV Mean PG 2 mmHg MV PHT 66 msec [ 20 - 100 ] MVA 2.70 MV Decel Time 227 msec [ 104 - 258 ] PV Peak Aldo 0.95 m/s [ 0.40 - 0.80 ] TR Peak Aldo 2.58 m/s [ 1.00 - 2.80 ] TR Peak PG 27 mmHg RVSP 32.00 mmHg [ 10.00 - 36.00 ] E` 0.07 m/s E/E` 9.62 [ <= 10.00 ] PA Pressure 5.00 mmHg [ 10.00 - 36.00 ] 2D/MM Value Range Doppler ValueRange - FINDINGS: Atrial Septum: Normal atrial septum. Left Ventricle: Irregular rhythm. Left ventricular systolic function at the lower limit ofnormal. Ejection Fraction is estimated to be 55 to 60 %. Left Atrium: The left atrium is normal in size. Right Ventricle: Normal right ventricular size. Normal right ventricular systolicfunction. Right Atrium: The right atrium is normal in size. Aortic Valve: Normal structure of the aortic valve. Mitral Valve: Normal structure of the mitral valve. Trivial regurgitation of the mitralvalve. Pulmonic Valve: Pulmonic valve not well visualized. Trivial regurgitation in the pulmonicvalve. Tricuspid Valve: Normal structure of the tricuspid valve. Mild tricuspid regurgitation. Pericardium: Normal pericardium with no significant pericardial effusion. Aorta: Normal aortic root. IVC: Normal size and normal respiratory collapse consistent with normal rightatrial pressure (<5 mmHg). CONCLUSIONS: Irregular rhythm. Left ventricular systolic function at the lower limit ofnormal. Ejection Fraction is estimated to be 55 to 60 %. Normal structure of the mitral valve. Trivial regurgitation of the mitralvalve. Normal structure of the aortic valve. Normal structure of the tricuspid valve. Mild tricuspid regurgitation. Electronically Signed By: Dr Sylvia Alejandra 06/16/2024 3:38:55 PM MANAGER STUDENT SERVICES us Perri Lay NP CV ECHO PROCEDURES Final R esult * MCT Mobile Cardiac Telemetry Event Monitor (06/07/2024 11:51 AM MANAGER STUDENT SERVICES) LV EF % CONS SCIMAGE Anatomical Region Laterality Modality Electrocardiogra phy 06/13/2024 11:5 9 PM MANAGER STUDENT SERVICES Narrative 06/16/2024 10:11 AM MANAGER STUDENT SERVICES [address] [place] [address] EVENT MONITOR Patient Name: LYNSEY JOYA D : 1975 Study Date: 06/13/2024 11:59:00 PM Gender: F Tech: Ref Provider: PERRI LAY Height(Cm): BSA: Weight(Kg): Order Provider: PERRI LAY - PROCEDURES: Event Report: Event Monitor Report. INDICATIONS: R00.2 Palpitations. FINDINGS: CONCLUSIONS: 1. Predominant rhythm is normal sinus rhythm with a minimum heart rate of 62 beats per minute in sinus and a maximum heart rate of 157 beats per minute also in sinus. Average heart rate of 93 beats per minute. Total monitoring time of 6 days 10 hours 0 minutes. 2. Heart rate and rate variability is appropriate. 3. No prolonged pauses. 4. Rare PACs with 855 PACs corresponding to less than 1% of total beats. 5. Rare PVCs with 48 PVCs corresponding to less than 1% of total beats. 6. There were 3 patient activated events with 2 of them associated with fluttering/skipped beats. One of the episodes of fluttering/skipped beat was associated with a 5 beat run of SVT at 140 beats per minute. Electronically Signed By: Dr Sylvia Alejandra 06/16/2024 10:10:35 AM MANAGER STUDENT SERVICES Procedure Note Sylvia Alejandra MD - 06/16/[address] [place] [address] EVENT MONITOR Patient Name: LYNSEY JOYA D : 1975 Study Date: 06/13/2024 11:59:00 PM Gender: F Tech: Ref Provider: PERRI LAY Height(Cm): BSA: Weight(Kg): Order Provider: PERRI LAY - PROCEDURES: Event Report: Event Monitor Report. INDICATIONS: R00.2 Palpitations. FINDINGS: CONCLUSIONS: 1. Predominant rhythm is normal sinus rhythm with a minimum heart rate of62 beats per minute in sinus and a maximum heart rate of 157 beats per minute also insinus. Average heart rate of 93 beats per minute. Total monitoring time of 6 days 10 hours 0 minutes. 2. Heart rate and rate variability is appropriate. 3. No prolonged pauses. 4. Rare PACs with 855 PACs corresponding to less than 1% of total beats. 5. Rare PVCs with 48 PVCs corresponding to less than 1% of total beats. 6. There were 3 patient activated events with 2 of them associated with fluttering/skipped beats. One of the episodes of fluttering/skipped beat was associated with a 5beat run of SVT at 140 beats per minute. Electronically Signed By: Dr Sylvia Alejandra 06/16/2024 10:10:35 AM MANAGER STUDENT SERVICES Perri Lay NP CV CARDIAC SERVICES PROCED URES Final Result * ECG 12 lead (04/26/2024 2:10 PM MANAGER STUDENT SERVICES) Perri Lay NP ECG ORDERABLES Final Resu lt * POC Influenza A/B, COVID-19 antigen (04/24/2024 3:30 PM MANAGER STUDENT SERVICES) Influenza A Ag, POC Negative Negative PCP [facility] Influenza B Ag, POC Negative Negative PCP [facility] COVID-19 Ag POC Presumptive Negative Presumptive Negative, Invalid PCP [facility] Nasal 04/24/2024 3:30 PM MANAGER STUDENT SERVICES Daniela Mcdonald WIRE DRAWING [employer]IE MAKER POINT OF CARE TEST ORDERABLE S Final Result PCP [facility] [address] [place] [address] * SCREENING MAMMOGRAM BILATERAL W BEBETO (03/10/2024 12:59 PM CDT) Anatomical Region Laterality Modality Breast Bilateral Mammography 03/10/2024 2:16 PM CDT Impressions 03/10/2024 2:16 PM CDT No evidence of malignancy in either breast. FINAL ASSESSMENT: BI-RADS Category 1: Negative. RECOMMENDATION: Recommend return for annual screening mammogram in 12 months. The radiology attending physician has personally reviewed this study, and had reviewed and/or edited this written report and agrees with it. Electronically signed by: Corey Rose MD Narrative 03/10/2024 2:16 PM CDT EXAMINATION: BILATERAL SCREENING MAMMOGRAM COMPARISON: Multiple prior studies, most recently 11/27/2022 and dating back to 2018. TECHNIQUE: Full-field 2D and digital breast tomosynthesis (DBT) images were obtained. CAD was utilized. BREAST PARENCHYMAL COMPOSITION: There are scattered areas of fibroglandular density. FINDINGS: There is no suspicious mass, calcification, or distortion in either breast. There has been no significant interval change from the prior study. Lakeshia Rush W[employer] DRAWING [employer]IE [employer]KER IMG MAMMO PROCEDURES Final Result * COLONOSCOPY (02/03/2022 10:59 AM CDT) Anatomical Region Laterality Modality Other Narrative Procedure Note Juliet Shabazz MD - 02/03/2022 10:59 AM CDT [facility] Patient Name: Lynsey Joya Procedure Date: 02/03/2022 10:59 AM Date of : 1975 Admit Type: Outpatient Age: 46 Gender: Female Note Status: Finalized Attending MD: Juliet Shabazz M.D. Procedure Date: 02/03/2022 Procedure: Colonoscopy Indications: Personal history of digestive disease, , Iron deficiency anemia (celiac dz) Providers: Juliet Shabazz M.D., Damaris Sheppard RN, Cristal Lopez, Business Representative Referring MD: Sanjay Rivera M.D., Leticia Dimas CRNA Medicines: Monitored Anesthesia Care Complications: No immediate complications. Estimated Blood Loss: Estimated blood loss was minimal. Procedure: Pre-Anesthesia Assessment: - Prior to the procedure, a History and Physicalwas performed, and patient medications and allergieswere reviewed. The patient is competent. The risks and benefits of the procedure and the sedation optionsand risks were discussed with the patient. Allquestions were answered and informed consent was obtained. Patient identification and proposed procedure were verified by the physician, the nurse and the ore miner blasting in the procedure room. Mental Status Examination: alert and oriented. AirwayExamination: normal oropharyngeal airway and neck mobility. Respiratory Examination: clear to auscultation. CV Examination: normal. Prophylactic Antibiotics: The patient does not require prophylactic antibiotics. Prior Anticoagulants: The patient has taken no anticoagulant or antiplatelet agents. ASA Grade Assessment: III - A patient with severe systemic disease. After reviewing the risks and benefits,the patient was deemed in satisfactory condition to undergo the procedure. The anesthesia plan was touse monitored anesthesia care (MAC). Immediately priorto administration of medications, the patient was re-assessed for adequacy to receive sedatives. The heart rate, respiratory rate, oxygen saturations, blood pressure, adequacy of pulmonary ventilation,and response to care were monitored throughout the procedure. The physical status of the patient was re-assessed after the procedure. - The risks and benefits of the procedure and the sedation options and risks were discussed with the patient. All questions were answered and informed consent was obtained. After I obtained informed consent, the scope was passed under direct vision. Throughout theprocedure, the patient's blood pressure, pulse, and oxygen saturations were monitored continuously. The scopewas passed under direct vision. The Colonoscope was introduced through the anus and advanced to the the terminal ileum. The colonoscopy was performedwithout difficulty. The patient tolerated the procedurewell. The quality of the bowel preparation was adequate.The bowel preparation used was Clenpiq via split dose instruction. Findings: The terminal ileum appeared normal. Biopsies were taken with a cold forceps for histology. Estimated blood loss was minimal. Scattered small-mouthed diverticula were found in the entire colon. The exam was otherwise without abnormality on direct and retroflexion views. Impression: - The examined portion of the ileum was normal. Biopsied. - Diverticulosis in the entire examined colon. - The examination was otherwise normal on directand retroflexion views. Recommendation: - Await pathology results. - Repeat colonoscopy in 5 years for screeningpurposes. Procedure Code(s): --- Professional --- 87168, Colonoscopy, flexible; with biopsy, singleor multiple Diagnosis Code(s): --- Professional --- Z87.19, Personal history of other diseases of the digestive system D50.9, Iron deficiency anemia, unspecified K57.30, Diverticulosis of large intestine without perforation or abscess without bleeding CPT copyright 2020 [employer]. All rights reserved. The codes documented in this report are preliminary and upon service cashier reviewmay be revised to meet current compliance requirements. Electronically signed by Juliet Shabazz M.D. Juliet Shabazz M.D. 02/03/2022 11:41:15 AM Number of Addenda: 0 Note Initiated On: 02/03/2022 10:59 AM Juliet Shabazz MD ENDOSCOPY PROCEDURES Fi nal Result * Hepatitis panel, acute (01/08/2021 12:17 PM CDT) Hep A IgM Nonreactive Nonreactive [facility] Comment: Interpretive Data: If Hep A IgM Ab is reported as Equivocal, a new sample should be drawn in two weeks for testing. Current interpretive data was last revised on 19. Hep B core IgM Nonreactive Nonreactive [facility] Comment: Interpretive Data If HepB Core IgM Ab is reported as Equivocal, a new sample should be drawn in two weeks for testing. Current interpretive data was last revised on 19. Hep C Ab Nonreactive Nonreactive [facility] Comment: Interpretive Data Nonreactive: Antibodies to HCV not detected. Does NOT exclude the possibility of recent exposure to HCV. Equivocal: Equivocal for HCV antibodies. Supplemental molecular testing will be automatically performed to determine infection status in accordance with current CDC screening recommendations. Reactive: Positive for HCV antibodies. This may represent current or past HCV infection. Supplemental molecular testing will be automatically performed to determine current infection status in accordance with current CDC screening recommendations. Interpretive data was last revised on 2019. HepBsAg Nonreactive Nonreactive [facility] Blood 01/08/2021 12:1 7 PM CDT 01/08/2021 8:37 PM CDT Juliet Shabazz MD LAB MICROBIOLOGY - GENE RAL ORDERABLES Final Result [facility] [id number] Department [place] [address] from Last 3 Months or Most Recently Relevant to Health Maintenance Insurance [facility] [employer] [place] [address] [place] [address] HMO [facility] CHOICE PLUS [facility] CHOICE PLUS Care Teams Product Sales Representative Relationship Specialty Start Date End Date Sanjay Rivera MD [address] [place] [place] [id number] PCP - General Family Medicine 01/14/21 Liliam Bonilla MD [address] [place] [address] Surgeon Medical Oncology 04/05/24
--- OUTSIDE RECORDS SUMMARY | 2024-06-29 09:39 | XMS_ITS | Referral Summary ---
Author Organization [facility] Address [address] [place] [address] Care Team Providers Care Sanding Machine Operator Name Role Phone Sanjay Rivera MD Primary Care Provider [phone] [place]on[place]Liliam MD Unavailable [phone] Encounters Date Type Department Care Team Description 06/22/2024 Telephone [facility] [address] [phone] Sanjay Rivera MD Test Results 06/21/2024 Telephone [place] [facility] at [address] [place] [address] Rose Quijano MA 06/21/2024 Telephone [facility] [address] [address] Sanjay Rivera MD Medical Question/Miscellaneo us 06/20/2024 Orders Only [facility] [address] [phone] Perri Lay NP Palpitations (Primary Dx); Murmur, cardiac 06/16/2024 9:25 AM SALES REPRESENTATIVE AIRCRAFT - 06/16/2024 11:59 PM SALES REPRESENTATIVE AIRCRAFT Hospital Encounter [facility] [address] [place] [address] Palpitations; Murmur, cardiac Discharge Disposition: Discharge to home or self care 06/16/2024 9:24 AM SALES REPRESENTATIVE AIRCRAFT - 06/16/2024 11:59 PM SALES REPRESENTATIVE AIRCRAFT Hospital Encounter [facility] [address] [place] [address] Palpitations; Murmur, cardiac Discharge Disposition: Discharge to home or self care 06/07/2024 11:50 AM SALES REPRESENTATIVE AIRCRAFT - 06/07/2024 11:59 PM SALES REPRESENTATIVE AIRCRAFT Hospital Encounter [facility] [address] [place] [address] Palpitations Discharge Disposition: Discharge to home or self care 05/23/2024 Orders Only [facility] [address] [phone] Perri Lay NP Palpitations (Primary Dx); Murmur, cardiac 05/11/2024 Telephone [facility] [address] [address] Abby Romero, RONALDO Authorization/Certif ication (STRESS ECHO EXERCISE W DOPPLER/CF) 04/26/2024 2:00 PM SALES REPRESENTATIVE AIRCRAFT Office Visit [facility] [address] [phone] Perri Lay NP Palpitations (Primary Dx); Celiac disease; PEGGY (obstructive sleep apnea); Class 3 severe obesity due to excess calories with serious comorbidity and body mass index (BMI) of 40.0 to 44.9 in adult ([facility]) 04/25/2024 Telephone [facility] [address] [phone] Sanjay Rivera MD Medical Question/Miscellaneo us 04/24/2024 2:30 PM SALES REPRESENTATIVE AIRCRAFT Office Visit [facility] Primary Care at [address] [place] [phone] Daniela Mcdonald NP Viral URI with cough (Primary Dx); Cervicalgia; Murmur, cardiac; Class 3 severe obesity due to excess calories with serious comorbidity and body mass index (BMI) of 40.0 to 44.9 in adult ([facility]) 04/03/[address] [facility] [address] [place] [address] Sharon Diaz, scheduling assistant Only; Appointment 03/30/[address] [facility] [address] [place] [address] Sharon Diaz, scheduling assistant Only (High Risk /Genetic testing referral ) from Last 3 Months Allergies Active Allergy [...] once a week 03/29/20 23 Active omega 2-ucp-qhz-fish oil (Fish OiL) 1,000 mg (120 mg-180 [...] 04/26/2024 Assessment & Plan (04/26/2024 2:36 PM SALES REPRESENTATIVE AIRCRAFT): Chronic intermittent palpitations. Increasing recently. Recommend stress echo and nuclear monitoring technician. ECG unremarkable. Also complete labs today. We reviewed red flags. She is in agreement with plan states understanding. Acute pain of left knee 05/24/2023 Assessment & Plan (05/24/2023 4:57 PM SALES REPRESENTATIVE AIRCRAFT): Fall onto left knee/leg 6 days ago. Mild abrasion noted to left knee with [id number]-dmlthgwx swelling of left knee. Bruising noted to left velazquez. Patient is taking acetaminophen for pain. Pain is worse with walking however she is been able to ambulate without difficulty. Recommended ibuprofen/NSAIDs. Reviewed rest, ice, Kolby wrap and elevating extremity. Left ankle swelling 05/24/2023 Assessment & Plan (05/24/2023 4:57 PM SALES REPRESENTATIVE AIRCRAFT): Swelling and bruising noted to left ankle. Patient is not experiencing any pain. Will check imaging, discussed rice. Left leg pain 05/24/2023 Assessment & Plan (05/24/2023 4:58 PM SALES REPRESENTATIVE AIRCRAFT): No redness or warmth noted to left [...] pain. Assessment & Plan (07/16/2021 9:39 AM SALES REPRESENTATIVE AIRCRAFT): The patient desires a minimally invasive procedure for treatment of obesity. She specifically inquired about g astric balloon . I informed her that I will reach out to the [facility] to see if it is offered. Assessment & Plan (06/30/2021 5:34 PM SALES REPRESENTATIVE AIRCRAFT): Discussed healthy diet and importance of regular physical activity. Mild intermittent asthma without complication Assessment & Plan (05/24/2023 4:54 PM SALES REPRESENTATIVE AIRCRAFT): Has been on Flovent for several months and is doing well, wanted to use albuterol inhaler for the 1st time this week. She is out both inhalers. Denies any cough or shortness a breath. Assessment & Plan (12/29/2021 4:59 PM CDT): Improved with use of Flovent twice daily. Denies any need for albuterol inhaler. Assessment & Plan (06/30/2021 5:34 PM SALES REPRESENTATIVE AIRCRAFT): Discussed use of maintenance inhaler and rescue inhaler. No abnormal findings on PE. Elevated liver enzymes 01/08/2021 Assessment & Plan (07/16/2021 9:32 AM SALES REPRESENTATIVE AIRCRAFT): Previous repeat liver function tests were normal. [...] (12/27/2020 4:54 PM CDT): Will go to [facility] for mammogram, given order today. Continues sbe. Benign-appearing intramammary lymph node of R breast on 03/11/20 US. Due for annual mammogram November 2020. PEGGY (obstructive sleep apnea) 10/22/2020 Assessment & Plan (04/26/2024 2:36 PM SALES REPRESENTATIVE AIRCRAFT): Untreated. Intolerant of CPAP. Discussed options including [...] today Assessment & Plan (05/24/2023 4:54 PM SALES REPRESENTATIVE AIRCRAFT): Patient states she had labs completed with [...] changes. Assessment & Plan (06/30/2021 5:34 PM SALES REPRESENTATIVE AIRCRAFT): Will check fasting labs. Reviewed diet/exercise recommendations. [...] mos. Assessment & Plan (07/17/2020 11:32 AM SALES REPRESENTATIVE AIRCRAFT): Discussed different types of medications & their [...] 07/15/2020 Assessment & Plan (07/17/2020 11:30 AM SALES REPRESENTATIVE AIRCRAFT): EKG normal; compared to 11/2018 EKG. No changes. BNP, CXR ordered. Reviewed recent labs from Dr Botello's office. Discussed h/o asthma. If neg CXR/labs, will send in flovent 2 puff bid. Reviewed inhaler technique. Will contact w/results once rec'd. Aware to check her [employer] account. Reviewed red flags; what would warrant rtc/ED for more emergent eval. Anxiety and depression 05/23/2019 Assessment & Plan (02/10/2024 5:20 PM CDT): Moods are stable doing well with sertraline, no changes made today Assessment & Plan (05/24/2023 4:53 PM SALES REPRESENTATIVE AIRCRAFT): Reports moods are stable with sertraline 50 mg daily Assessment & Plan (12/29/2021 5:02 PM CDT): Well controlled with sertraline. Will continue to monitor. Assessment & Plan (06/30/2021 5:35 PM SALES REPRESENTATIVE AIRCRAFT): Stable; continue sertraline without change. Follow up [...] flags. Assessment & Plan (05/23/2019 3:08 PM SALES REPRESENTATIVE AIRCRAFT): Reports good control of anxiety/depression w/current regimen. No changes to be made at this time. Fluoxetine 20mg refill sent. Reviewed med Ses & scheduling. Reviewed red flags. Refused influenza vaccine 05/23/2019 Assessment & Plan (07/17/2020 11:33 AM SALES REPRESENTATIVE AIRCRAFT): Discussed and the patient refuses immunization today. Educated regarding the need to vaccinate for personal protection and to limit the viruses in the community to protect those most vulnerable. Assessment & Plan (05/23/2019 3:09 PM SALES REPRESENTATIVE AIRCRAFT): Discussed and the patient refuses immunization today. Educated regarding the need to vaccinate for personal protection and to limit the viruses in the community to protect those most vulnerable. Celiac disease 02/14/2018 Assessment & Plan (04/26/2024 2:37 PM SALES REPRESENTATIVE AIRCRAFT): Continues with gluten free diet. Will continue to monitor. Assessment & Plan (02/10/2024 5:20 PM CDT): Doing well on gluten free diet. EGD completed 2021 showing regrowth of villi. Will check labs today including CBC, iron profile, vitamin-D and B12. Assessment & Plan (05/24/2023 4:53 PM SALES REPRESENTATIVE AIRCRAFT): Asymptomatic at this time, continues to do well following a gluten free diet. Assessment & Plan (01/21/2022 9:38 AM CDT): Currently asymptomatic. Has become constipated lately because she is started on phentermine. Will check tTG IgA, iron profile. Repeat EGD with small-bowel biopsy. Assessment & Plan (07/16/2021 9:35 AM SALES REPRESENTATIVE AIRCRAFT): Doing well. Has been able to avoid [...] diet. Assessment & Plan (05/23/2019 3:08 PM SALES REPRESENTATIVE AIRCRAFT): Follows w/Dr Juan A HARMON at [facility] [...] 07/15/2020 Assessment & Plan (07/17/2020 11:00 AM SALES REPRESENTATIVE AIRCRAFT): Reviewed need to lose weight, reviewed health benefits. Reviewed recommendations for daily intake & activity 20-30 minutes/day. Discussed healthy diet and importance of regular physical activity. Encounter for medical examin [facility] to establish care 05/23/2019 07/17/2020 Assessment & Plan (05/23/2019 3:09 PM SALES REPRESENTATIVE AIRCRAFT): Reviewed screening guidelines: no family history of breast or colon cancer. Encouraged monthly SBEs. Mammogram 2017 Colonoscopy 02/2018. Not due until 51 y/o [address] Velazco Reviewed dietary/activity recommendations. Encounter for screening for lipoid disorders 0 07/17/2020 Assessment & Plan (05/23/2019 3:09 PM SALES REPRESENTATIVE AIRCRAFT): Lipid panel ordered; will call w/results when received. Reviewed diet/exercise recommendations. BMI 39.0-39.9,adult 05/23/2019 07/18/19 21 Assessment & Plan (05/23/2019 3:10 PM SALES REPRESENTATIVE AIRCRAFT): Reviewed need to lose weight, reviewed health benefits. Reviewed recommendations for daily intake & activity 20-30 minutes/day. Discussed healthy diet and importance of regular physical activity. Immunizations Name Administration Dates Next Due Influenza, Unspecified 02/10/2024(Deferr ed: Patient Refused),05/24/2023(Deferred: Patient Refused),02/14/2023(Deferred: Patient Refused),01/15/2023(Deferred: Patient Refused),02/14/2022(Deferred: Patient Refused),01/15/2022(Deferred: Patient Refused),06/30/2021(Deferred: Patient Refused),02/14/2021(Deferred: Patient Refused),12/27/2020(Deferred: Patient Refused),07/15/2020(Deferred: Patient Refused),02/15/2020(Deferred: Patient Refused),05/23/2019(Deferred: Patient Refused),05/17/2019(Deferred: Patient Refused),02/14/2019(Deferred: Patient Refused),02/14/2019(Deferred: Patient Refused),05/17/2018(Deferred: Patient Refused) Pneumococcal Polysaccharide PPV23 12/29/2021(Def erred: Patient Refused) Social History Tobacco Use Types Packs/Day Years [...] on file Legal Sex Female 5:07 PM SALES REPRESENTATIVE AIRCRAFT Gender Identity Female 03/04/2020 6:31 AM CDT Sexual Orientation Straight 03/04/2020 6: 31 AM CDT Last Filed Vital Signs Vital Sign Reading Time Taken Comments Blood Pressure 122/86 04/26/2024 1:41 PM SALES REPRESENTATIVE AIRCRAFT Pulse 93 04/26/2024 1:41 PM SALES REPRESENTATIVE AIRCRAFT Temperature 36.4 C (97.5 F) 04/26/2024 1:41 PM SALES REPRESENTATIVE AIRCRAFT Respiratory Rate 20 04/26/2024 1:41 PM SALES REPRESENTATIVE AIRCRAFT Oxygen Saturation 99% 04/26/2024 1:41 PM SALES REPRESENTATIVE AIRCRAFT Inhaled Oxygen Concentration - - Weight 113.5 kg (250 lb 3.2 oz) 04/26/2024 1:41 PM SALES REPRESENTATIVE AIRCRAFT Height 167.6 cm (5' 5.98 ) 04/26/2024 1:41 PM CS T Body Mass Index 40.4 04/26/2024 1:41 PM SALES REPRESENTATIVE AIRCRAFT Plan of Treatment Not on file Procedures Procedure Name Priority Date/Time Associated Diagnosis Comments STRESS TEST ONLY TREADMILL Routine 06/16/2024 10:42 AM SALES REPRESENTATIVE AIRCRAFT Palpitations Murmur, cardiac TRANSTHORACIC ECHO (TTE) COMPLETE W DOPPLER/CF WO CONTRAST Routine 06/16/2024 10:06 AM SALES REPRESENTATIVE AIRCRAFT Palpitations Murmur, cardiac MCT - MOBILE CARDIAC TELEMETRY EVENT MONITOR Routine 06/07/2024 11:51 AM SALES REPRESENTATIVE AIRCRAFT Palpitations ECG 12-LEAD Routine 04/26/2024 2:10 PM SALES REPRESENTATIVE AIRCRAFT Palpitations POC INFLUENZA A/B, COVID-19 ANTIGEN Routine 04/24/2024 3:30 PM SALES REPRESENTATIVE AIRCRAFT Viral URI with cough SCREENING MAMMOGRAM BILATERAL W BEBETO Schedule Routine, Read Routine (OP Routine) 03/10/2024 12:59 PM CDT Encounter for screening mammogram for breast cancer COLONOSCOPY 02/03/2022 10:59 AM CDT HEPATITIS PANEL, ACUTE Routine 01/08/2021 12:17 PM CDT Elevated liver enzymes from Last 3 Months or Most Recently Relevant to Health Maintenance Results * Stress Treadmill Test (06/16/2024 10:42 AM SALES REPRESENTATIVE AIRCRAFT) LV EF % CONS SCIMAGE Anatomical Region Laterality Modality Nuclear Medicine 06/16/2024 10:1 4 AM SALES REPRESENTATIVE AIRCRAFT Narrative 06/16/2024 11:39 AM SALES REPRESENTATIVE AIRCRAFT [address] [address] EXERCISE STRESS Patient Name: LYNSEY JOYA : [...] BP: 183/87 METS achieved: 9 Rate-Pressure Product: 86012 BPM*mmHg Max ST: Performed By: Noemi White. [...] By: Dr Sylvia Alejandra 06/16/2024 11:38:08 AM SALES REPRESENTATIVE AIRCRAFT Procedure Note Sylvia Alejandra MD - 06/16/[address] [place] [address] EXERCISE STRESS Patient Name: LYNSEY JOYA : [...] BP: 183/87 METS achieved: 9 Rate-Pressure Product: 93655 BPM*mmHg Max ST: Performed By: Noemi White. [...] By: Dr Sylvia Alejandra 06/16/2024 11:38:08 AM SALES REPRESENTATIVE AIRCRAFT Perri Lay NP CV STRESS PROCEDURES Final Result * TRANSTHORACIC ECHO (TTE) COMPLETE W DOPPLER/CF WO CONTRAST (06/16/2024 10:06 AM SALES REPRESENTATIVE AIRCRAFT) LV EF 55 % CONS SCIMAGE Anatomical Region Laterality Modality Ultrasound 06/16/2024 9:47 AM SALES REPRESENTATIVE AIRCRAFT Narrative 06/16/2024 3:39 PM SALES REPRESENTATIVE AIRCRAFT [address] [place] [address] Echocardiogram Report Patient Name: LYNSEY JOYA D [...] By: Dr Sylvia Alejandra 06/16/2024 3:38:55 PM SALES REPRESENTATIVE AIRCRAFT Procedure Note Sylvia Alejandra MD - 06/16/[address] [address] Echocardiogram Report Patient Name: LYNSEY JOYA D [...] By: Dr Sylvia Alejandra 06/16/2024 3:38:55 PM SALES REPRESENTATIVE AIRCRAFT us Perri Lay NP CV ECHO PROCEDURES Final R esult * MCT Mobile Cardiac Telemetry Event Monitor (06/07/2024 11:51 AM SALES REPRESENTATIVE AIRCRAFT) LV EF % CONS SCIMAGE Anatomical Region Laterality Modality Electrocardiogra phy 06/13/2024 11:5 9 PM SALES REPRESENTATIVE AIRCRAFT Narrative 06/16/2024 10:11 AM SALES REPRESENTATIVE AIRCRAFT [address] [address] EVENT MONITOR Patient Name: LYNSEY JOYA D [...] By: Dr Sylvia Alejandra 06/16/2024 10:10:35 AM SALES REPRESENTATIVE AIRCRAFT Procedure Note Sylvia Alejandra MD - 06/16/[address] [place] [address] EVENT MONITOR Patient Name: LYNSEY JOYA D [...] By: Dr Sylvia Alejandra 06/16/2024 10:10:35 AM SALES REPRESENTATIVE AIRCRAFT Perri Lay NP CV CARDIAC SERVICES PROCED URES Final Result * ECG 12 lead (04/26/2024 2:10 PM SALES REPRESENTATIVE AIRCRAFT) Perri Lay NP ECG ORDERABLES Final Resu lt * POC Influenza A/B, COVID-19 antigen (04/24/2024 3:30 PM SALES REPRESENTATIVE AIRCRAFT) Influenza A Ag, POC Negative Negative PCP [facility] Influenza B Ag, POC Negative Negative PCP [facility] COVID-19 Ag POC Presumptive Negative Presumptive Negative, Invalid PCP [facility] Nasal 04/24/2024 3:30 PM SALES REPRESENTATIVE AIRCRAFT Daniela Mcdonald NP POINT OF CARE TEST ORDERABLE S Final Result PCP [facility] [address] [facility] [address] [place] [phone], [facility] * SCREENING MAMMOGRAM BILATERAL W [...] significant interval change from the prior study. us Lakeshia Rush NP IMG MAMMO PROCEDURES Final Result * COLONOSCOPY (02/03/2022 10:59 AM CDT) Anatomical Region Laterality Modality Other Narrative Procedure Note Juliet Shabazz MD - 02/03/2022 10:59 AM CDT [facility] Endoscopy Lab Patient Name: Lynsey Joya Procedure Date: 02/03/2022 10:59 AM Date of : 1975 Admit Type: Outpatient Age: 46 Gender: Female Note Status: Finalized Attending MD: Juliet Shabazz M.D. Procedure Date: 02/03/2022 Procedure: Colonoscopy Indications: Personal history of digestive disease, , Iron deficiency anemia (celiac dz) Providers: Juliet Shabazz M.D., Damaris Sheppard RN, Cristal Lopez, Buying Agent Referring MD: Sanjay Rivera M.D., Leticia Dimas [...] by the physician, the nurse and the automobile salesman in the procedure room. Mental Status Examination: [...] for screeningpurposes. Procedure Code(s): --- Professional --- 94265, Colonoscopy, flexible; with biopsy, singleor multiple Diagnosis Code(s): --- Professional --- Z87.19, Personal history of other diseases of the digestive system D50.9, Iron deficiency anemia, unspecified K57.30, Diverticulosis of large intestine without perforation or abscess without bleeding CPT copyright 202 [employer]. All rights reserved. The codes documented in this report are preliminary and upon naphthalene still operator reviewmay be revised to meet current compliance requirements. Electronically signed by Juliet Shabazz M.D. Juliet Shabazz M.D. 02/03/2022 11:41:15 AM Number of Addenda: 0 Note Initiated On: 02/03/2022 10:59 AM us Juliet Shabazz MD ENDOSCOPY PROCEDURES Fi nal Result * Hepatitis panel, acute (01/08/2021 12:17 PM CDT) Hep A IgM Nonreactive Nonreactive ZECHARIAH DE LEÓN Comment: Interpretive Data: If Hep A IgM Ab is reported as Equivocal, a new sample should be drawn in two weeks for testing. Current interpretive data was last revised on 19. Hep B core IgM Nonreactive Nonreactive ZECHARIAH Comment: Interpretive Data If HepB Core IgM [...] - GENE RAL ORDERABLES Final Result ZECHARIAH [id number] [place] [address] from Last 3 Months or Most Recently Relevant to Health Maintenance Insurance [facility] CHOICE [facility]US [facility] HMO/PPO Address: [address] [address] [place] [address] [facility] CHOICE PL[facility] HMO/PPO Address: [address] [address] [place] [id number] [facility] HMO/PPO Address: [facility] [id number] [place] [address] Care Teams Sanding Machine Operator Relationship Specialty Start Date End Date Sanjay Rivera MD [address] [place] [address] PCP - General Family Medicine 01/14/21 Liliam Bonilla MD [address] [place] [address] Surgeon Medical Oncology 04/05/24
--- OUTSIDE RECORDS SUMMARY | 2024-06-29 09:39 | XMS_ITS | Encounter Summary ---
Author Organization [facility] Healthcare Address [address] [place] [address] Care Team Providers Care Outsole Caser Name Role Phone Sanjay Rivera MD Primary Care Provider [phone] BodcawLiliam MD Unavailable [phone] Reason for Visit * Reason Onset Date Comments Medical Question/Miscellaneous 06/21/2024 Encounter Details Date Type Department Care Team (Late st Contact Info) Description 06/21/2024 Telephone [facility] [address] [place] [address] Sanjay Rivera MD [address] [place] [address] Medical Question/Miscellaneous Social History Tobacco Use Types Packs/Day Years Used Date Smoking Tobacco: Never Smokeless Tobacco: Never Alcohol Use Standard Drinks/Week Comments Not Currently [...] on file Legal Sex Female 5:07 PM DRUG COUNSELOR Gender Identity Female 03/04/2020 6:31 AM CDT Sexual Orientation Straight 03/04/2020 6: 31 AM CDT documented as of this encounter Miscellaneous Notes * Telephone Encounter - Guerline Gauthier - 06/21/2024 1:04 PM CST Medical Question/Miscellaneous Caller???s Concern: Patient called back about the testing done by cardiology and someone had tried caller her back. FISHERIES DIVER did not see any notes and tests were ordered by Dr. Kelly. Advised to check with his office for results. Does message need to be routed? No COUNSELOR documented in this encounter Plan of Treatment Not on file documented as of this encounter Visit Diagnoses Not on filedocumented in this encounter Care Teams Outsole Caser Relationship Specialty Start Date End Date Sanjay Rivera MD [address] [place] [address] PCP - General Family Medicine 01/14/21 Liliam Bonilla MD [address] [place] [address] Surgeon Medical Oncology 04/05/24 documented as of this encounter
[2024-06-29 09:42] VITALS: BP 149/64; PULSE 82; RESP 16; TEMP 36.5; O2SAT 100
--- NOTE | 2024-06-29 10:48 | ED.EYEPROB ---
HPI - Eye Problem General Chief complaint: Eye Problems Stated complaint: Right Eye Time Seen by Provider: 06/29/24 10:42 Source: patient, RN notes reviewed and old records reviewed Mode of arrival: ambulatory Limitations: no limitations History of Present Illness HPI Narrative: 49 year old female who presents to [facility] with complaints of right eye swelling upper eyelid with redness for the past 2 days with increasing symptoms.. Patient reports that she has been applying warm compresses to her right eye and has been taking Ibuprofen for the discomfort, Patient has small red raised area noted to right upper eylid, states she has not had a stye since she was in her 20's. Patient reports no visual changes or any sharp pain to her right eye. MD chief complaint: eye redness and other (upper right eyelid swelling) Onset (ago): day(s) (2) Onset description: gradual Duration: progressively worsening Location: right eye Eye Symptoms: redness, pain and other (swelling right upper eyelid) Severity scale (1-10): 4 Treatments Prior to Arrival: NSAID and other (warm compresses to right eye) Related Data Home Medications ?Medication ?Instructions ?Recorded ?Confirmed ?Last Taken ?Type prednisone 20 mg tablet 20 mg PO DAILY 05/26/21 05/26/21 Unknown History sertraline 50 mg tablet 50 mg PO DAILY 05/26/21 06/29/24 Unknown History Allergies Allergy/AdvReac Type Severity Reaction Status Date / Time hydroxyzine Allergy Mild HIVES Unverified 05/26/21 14:36 Review of Systems Review of Systems: CONSTITUTIONAL: Denies fever, chills, or sweats. EYES: Denies visual changes. Reports redness,, irritation, swelling of right upper eyelid with small red raised area on right upper eyelid. ENT: Denies rhinorrhea, congestion, sore throat, or otalgia. CARDIOVASCULAR: Denies chest pain, palpitations, or edema. RESPIRATORY: Denies cough or dyspnea. SKIN: Denies rash or itching. NEUROLOGIC: Denies headache All systems reviewed & are unremarkable except as noted in HPI and below PMFSH Past Medical History Medical History (Updated 07/01/24 @ 13:07 by Debbie Hall NP) Bronchitis Asthma Anxiety and depression Social History Social History (Updated 07/01/24 @ 13:01 by Debbie Hall NP) Smoking status: Never smoker Alcohol intake: current Alcohol use details: social Substance use type: does not use Living arrangements: with family Gender identity (if verbalized by the patient): Female Comments At time of signature, agree with nursing past medical, surgical, social and family history. There is no relevant family history pertinent to the presenting complaint Exam Narrative: GENERAL: Well-appearing, well-nourished, and in no acute distress. HEAD: Normocephalic, atraumatic. EYES: PERRLA and EOMI. Upper right eyelid red and swollen with small red raised lesion on right upper eyelid, lower eyelid right eye unremarkable, Sclera and conjunctivae clear, no sharp pain to right eye or any visual changes. ENT: Nares clear, no rhinorrhea or epistaxis. Mucous membranes moist. NECK: Supple. no lymphadenopathy CHEST: Clear to auscultation. No respiratory distress. SAO2 100% on room air HEART: Regular rate and rhythm. No murmur heard. Normal peripheral pulses. SKIN: Warm, dry, no rash. NEURO: No focal deficits. Alert and oriented x3. Course Course Emergency Course: Patient is aware of diagnosis, understands and agrees to treatment plan. Anticipatory guidance given. Patient agrees to follow-up as directed and is aware of reasons to seek care at the emergency department. Portions of this record may have been created with voice recognition software Level of Care: Express Care Visit Vital Signs Vital signs: Vital Signs Temperature 36.5 C 06/29/24 09:42 Pulse Rate 82 06/29/24 09:42 Respiratory Rate 16 06/29/24 09:42 Blood Pressure 149/64 H 06/29/24 09:42 Pulse Oximetry 100 06/29/24 09:42 Oxygen Delivery Room Air 06/29/24 09:42 Temperature 36.5 C 06/29/24 09:42 Pulse Rate 82 06/29/24 09:42 Respiratory Rate 16 06/29/24 09:42 Blood Pressure 149/64 H 06/29/24 09:42 Pulse Oximetry 100 06/29/24 09:42 Oxygen Delivery Room Air 06/29/24 09:42 Reviewed MDM - Eye Problem MDM Narrative Medical decision making narrative: Consideration of the following conditions may be warranted for the presenting problem, they are not final diagnoses: Bacterial conjunctivitis, allergic conjunctivitis, viral conjunctivitis, foreign body, blepharitis, chalazion, hordeolum, corneal abrasion.? Exam findings show no acute concerns or changes; patient is non-toxic appearing and is in no distress.? Patient is appropriate for outpatient treatment and follow-up. Differential Diagnosis Differential diagnosis: Likely conjunctivitis, subconjunctival hemorrhage and other (hordeolum) Medical Records Attestation: I reviewed the patient's medical records. Critical Care Time Critical Care Time Critical Care Time: No Discharge Plan Discharge Clinical Impression: Hordeolum, external Qualifiers: Laterality: right Eyelid: upper Qualified Code(s): H00.011 - Hordeolum externum right upper eyelid Patient Disposition: Home, Self-Care Condition: Stable Instructions: Antibiotic Form, Rajiv (ED) Additional Instructions: Cold compresses to the eyes for comfort May need warm compresses to remove debris in the morning When cleaning the eyes used a washcloth in one direction then change washcloths or use a cotton ball in one direction and then his cotton balls Eyedrops as directed--may be more soothing if left in the refrigerator Do not share medicine--do not touch the eye with the medicine Tylenol or ibuprofen for pain Avoid screen time--television, computer, tablet or phone. Also no reading or driving Follow-up with PCP or bike shop manager as directed if no improvement in 48 hors If your symptoms persist, change or worsen significantly before you can contact your personal physician then please, without delay, go to the emergency department for further evaluation. Follow-up with PCP in 7-10 days or sooner if needed Follow up with PCP soon in regards to your blood pressure which is elevated above threshold for referral. Blood pressure above 120/80 may indicate pre-hypertension.149/64 Patient Language: Persian Prescriptions: New ofloxacin 0.3 % drops See Rx Instructions .ROUTE .COMPLEX Qty: 10 0RF Rx Instructions: put 1-2 drps into affected eye(s) every 2-4 h x 2 days, then 1-2 drps 4 times/day days 3-7 No Action sertraline 50 mg tablet 50 mg PO DAILY prednisone 20 mg tablet 20 mg PO DAILY prednisone 10 mg tablet See Rx Instructions .ROUTE .COMPLEX Qty: 30 0RF Rx Instructions: 4 tabs daily for days 1-3, 3 tabs daily for days 4-6, 2 tabs daily for days 7-9, 1 tab daily for days 10-12 Follow-up/Referrals: Harms,Sanjay Peters M.D. [Primary Care Provider] - Time of Disposition: 10:57 Quality [place] Coma Scale Eyes: Open Verbal: Oriented and Alert Motor: Follows Commands [place] Coma Total Score: 15
== END 2024-06-29 11:03 | disposition home or self-care (01) ==
PROVIDERS: Emergency Provider Registered Nurse; PCP Family Medicine
DX: H00.011 Hordeolum externum right upper eyelid (principal); J45.909 Unspecified asthma, uncomplicated; F41.9 Anxiety disorder, unspecified; F32.A Depression, unspecified
CPT/HCPCS: 99213; G0463